=== PATIENT | male | born 1965 | race African-American/Black ===

== ENCOUNTER 2017-01-18 19:43 | Emergency (ER) | payer BC ==
[2017-01-18] MEDS ORDERED: Sodium Chloride 0.9% 1,000 ML IV ONE (19:51)
--- NOTE | 2017-01-18 19:51 | EDM.PDOC ---
ED HPI GENERAL MEDICAL PROBLEM - General Chief Complaint: Chest Pain Stated Complaint: DIZZY/VISION Time Seen by Provider: 01/18/17 19:51 - History of Present Illness INITIAL COMMENTS - FREE TEXT/NARRATIVE: HISTORY AND PHYSICAL: History of present illness: Patient is a 44-year-old black male presents a concern of chest pain shortness of breath dizziness for 2 weeks he denies palpitations diaphoresis associated nausea vomiting diarrhea or other complaints. Review of systems: As per history of present illness and below otherwise all systems reviewed and negative. Past medical history: As per history of present illness and as reviewed below otherwise noncontributory. Surgical history: As per history of present illness and as reviewed below otherwise noncontributory. Social history: No reported history of drug or alcohol abuse. Family history: As per history of present illness and as reviewed below otherwise noncontributory. Physical exam: HEENT: Atraumatic, normocephalic, pupils reactive, negative for conjunctival pallor or scleral icterus, mucous membranes moist, throat clear, neck supple, nontender, trachea midline. Lungs: Clear to auscultation, breath sounds equal bilaterally, chest nontender. Heart: S1S2, regular, negative for clicks, rubs, or JVD. Abdomen: Soft, nondistended, nontender. Negative for masses or hepatosplenomegaly. Negative for costovertebral tenderness. Pelvis: Stable nontender. Genitourinary: Deferred. Rectal: Deferred. Extremities: Atraumatic, negative for cords or calf pain. Neurovascular unremarkable. Neuro: Awake, alert, oriented. Cranial nerves II through XII unremarkable. Cerebellum unremarkable. Motor and sensory unremarkable throughout. Exam nonfocal. Diagnostics: CBC CMP PT/INR troponin chest x-ray EKG Therapeutics: IV O2 monitor Impression: #1 atypical chest pain #2 dyspnea over 3 dizziness Definitive disposition and diagnosis as appropriate pending reevaluation and review of above. - Related Data Allergies Allergy/AdvReac Type Severity Reaction Status Date / Time No Known Allergies Allergy Verified 01/18/17 19:47 Home Meds: Home Meds . [No Known Home Meds] 01/18/17 [History] ED ROS GENERAL - Review of Systems Review Of Systems: ROS reveals no pertinent complaints other than HPI. ED EXAM, GENERAL - Physical Exam Exam: See Below (See dictation) Course - Orders/Labs/Meds Orders: Active Orders 24 hr Category Date Time Status EKG 12 Lead [EKG Documentation Completion] [RC] STAT Care 01/18/17 19:47 Active Departure - Departure Time of Disposition: 19:50 Disposition: Home, Self-Care 01 Condition: Good Clinical Impression: Atypical chest pain, Dyspnea, Dizziness - Discharge Information Referrals: PCP,None [Primary Care Provider] - Additional Instructions: The following information is given to patients seen in the emergency department who are being discharged to home. This information is to outline your options for follow-up care. We provide all patients seen in our emergency department with a follow-up referral. The need for follow-up, as well as the timing and circumstances, are variable depending upon the specifics of your emergency department visit. If you don't have a primary care physician on staff, we will provide you with a referral. We always advise you to contact your personal physician following an emergency department visit to inform them of the circumstance of the visit and for follow-up with them and/or the need for any referrals to a consulting specialist. The emergency department will also refer you to a specialist when appropriate. This referral assures that you have the opportunity for followup care with a specialist. All of these measure are taken in an effort to provide you with optimal care, which includes your followup. Under all circumstances we always encourage you to contact your private physician who remains a resource for coordinating your care. When calling for followup care, please make the office aware that this follow-up is from your recent emergency room visit. If for any reason you are refused follow-up, please contact the [facility] emergency department at and asked to speak to the emergency department charge nurse. [facility] [address] [place] [phone] Follow primary medical doctor and/or clinic as discussed alternate Tylenol as directed push fluids return as needed as discussed - My Orders Last 24 Hours: My Active Orders 01/18/17 19:47 EKG 12 Lead [EKG Documentation Completion] [RC] STAT - Assessment/Plan Last 24 Hours: My Active Orders 01/18/17 19:47 EKG 12 Lead [EKG Documentation Completion] [RC] STAT
[2017-01-18 20:28] LABS: CHLORIDE,CL 97 mmol/L (98-110); SODIUM,NA 132 mmol/L (136-146)
[2017-01-18 21:23] VITALS: BP 118/85
--- NOTE | 2017-01-19 16:00 | CR ---
EXAM DATE: 01/18/17 PATIENT'S AGE: 51 Patient: LYNDSEY LYNN Facility: [place], [place] Site . Site : 1965 Study: XRay Chest [id number]/5/2017 8:32:04 PM Ordering Physician: Jorge Wilson Final Report: INDICATIONS: Chest pain. Shortness of breath. TECHNIQUE: Chest 1 view portable. COMPARISON: None FINDINGS: No pneumothorax, pleural effusion or airspace consolidation. Cardiac and mediastinal contours are within normal limits. Upper abdomen and osseous structures show no acute abnormality. IMPRESSION: No evidence of acute cardiopulmonary disease. Dictated by Sukh Liu MD @ 01/18/2017 8:51:34 PM Dictated by: Sukh Liu MD @ 01/18/2017 20:51:51 (Electronic Signature) Report Signed by Proxy. [facility]
== END 2017-01-18 21:23 | disposition home or self-care (01) ==
LOC: MW.ED 19:43
DX: R07.89 Other chest pain (principal); R42 Dizziness and giddiness; R06.00 Dyspnea, unspecified
CPT/HCPCS: 71010; 80053; 82553; 84484; 85025; 93005; 96360; 99285; J7040; 99284

== ENCOUNTER 2018-01-06 16:12 | Emergency (ER) | payer SELFPAY ==
[2018-01-06] MEDS ORDERED: Albuterol/Ipratropium 3.0-0.5 MG/3 ML Neb Soln NEB ONE (16:38)
--- NOTE | 2018-01-06 16:49 | EDM.PDOC ---
ED HPI GENERAL MEDICAL PROBLEM - General Chief Complaint: Respiratory Problem Stated Complaint: PT HAS CHEST PAINS Time Seen by Provider: 01/06/18 16:38 Source of Information: Reports: Patient History Limitations: Reports: No Limitations - History of Present Illness INITIAL COMMENTS - FREE TEXT/NARRATIVE: HISTORY AND PHYSICAL: History of present illness: Patient is a 52-year-old male here with cough and SOB x 4 days. He states he has pain in his midchest with coughing. He states he had a hard time sleeping last night due to the cough. He denies any fevers, chills, nausea, vomiting, diarrhea, diaphoresis, radiation of pain to left jaw or arm. Review of systems: As per history of present illness and below otherwise all systems reviewed and negative. Past medical history: As per history of present illness and as reviewed below otherwise noncontributory. Surgical history: As per history of present illness and as reviewed below otherwise noncontributory. Social history: No reported history of drug or alcohol abuse. Family history: As per history of present illness and as reviewed below otherwise noncontributory. Physical exam: General: patient is sitting comfortably in no acute distress HEENT: Atraumatic, normocephalic, pupils reactive, negative for conjunctival pallor or scleral icterus, mucous membranes moist, throat clear, neck supple, nontender, trachea midline. Lungs: Wheezing noted throughout all lung lyon, breath sounds diminished, breath sounds equal bilaterally, chest nontender. Heart: S1S2, regular, negative for clicks, rubs, or JVD. Abdomen: Soft, nondistended, nontender. Negative for masses or hepatosplenomegaly. Negative for costovertebral tenderness. Pelvis: Stable nontender. Genitourinary: Deferred. Rectal: Deferred. Extremities: Atraumatic, negative for cords or calf pain. Neurovascular unremarkable. Neuro: Awake, alert, oriented. Cranial nerves II through XII unremarkable. Cerebellum unremarkable. Motor and sensory unremarkable throughout. Exam nonfocal. Notes: Patient reports significant improvement after DuoNob. Oxygen saturation 97%. Diagnostics: Chest x-ray Therapeutics: DuoNeb Impression: Acute bronchitis Plan: 1. Use inhaler as instructed 2. Follow up with primary care provider 3. Return to ED as needed as discussed Definitive disposition and diagnosis as appropriate pending reevaluation and review of above. Middle Chest Pain Score (Numeric/FACES): 6 - Related Data Allergies Allergy/AdvReac Type Severity Reaction Status Date / Time No Known Allergies Allergy Verified 01/18/17 19:47 Home Meds: Home Meds Dulaglutide [Trulicity] 14 units DAILY 01/06/18 [History] Lisinopril 5 mg DAILY 01/06/18 [History] metFORMIN HCl [Metformin HCl] 1,000 mg BID 01/06/18 [History] Past Medical History - Past Health History Medical/Surgical History: Denies Medical/Surgical History - Infectious Disease History Infectious Disease History: Reports: None Social & Family History - Family History Family Medical History: Noncontributory ED ROS GENERAL - Review of Systems Review Of Systems: ROS reveals no pertinent complaints other than HPI. ED EXAM, GENERAL - Physical Exam Exam: See Below (see dictation) Course - Vital Signs Last Recorded V/S: Last Vital Signs Temp 36.9 C 01/06/18 16:29 Pulse 109 H 01/06/18 16:29 Resp 20 01/06/18 16:29 BP 115/69 01/06/18 16:29 Pulse Ox 94 L 01/06/18 16:29 - Orders/Labs/Meds Orders: Active Orders 24 hr Category Date Time Status RT Aerosol Therapy [RC] ASDIRECTED Care 01/06/18 16:39 Active Chest 2V [CR] Stat Exams 01/06/18 16:38 Taken Meds: Medications Discontinued Medications Generic Name Dose Route Start Last Admin Trade Name Freq PRN Reason Stop Dose Admin Albuterol/Ipratropium 3 ml 01/06/18 16:38 01/06/18 16:42 Duoneb 3.0-0.5 Mg/3 Ml NEB 01/06/18 16:39 3 ml ONETIME ONE Administration Departure - Departure Time of Disposition: 17:51 Disposition: Home, Self-Care 01 Condition: Good Clinical Impression: Acute bronchitis - Discharge Information Referrals: PCP,None [Primary Care Provider] - Forms: ED Department Discharge Additional Instructions: The following information is given to patients seen in the emergency department who are being discharged to home. This information is to outline your options for follow-up care. We provide all patients seen in our emergency department with a follow-up referral. The need for follow-up, as well as the timing and circumstances, are variable depending upon the specifics of your emergency department visit. If you don't have a primary care physician on staff, we will provide you with a referral. We always advise you to contact your personal physician following an emergency department visit to inform them of the circumstance of the visit and for follow-up with them and/or the need for any referrals to a consulting specialist. The emergency department will also refer you to a specialist when appropriate. This referral assures that you have the opportunity for follow-up care with a specialist. All of these measure are taken in an effort to provide you with optimal care, which includes your follow-up. Under all circumstances we always encourage you to contact your private physician who remains a resource for coordinating your care. When calling for follow-up care, please make the office aware that this follow-up is from your recent emergency room visit. If for any reason you are refused follow-up, please contact the [facility] Emergency Department at and asked to speak to the emergency department charge nurse. [facility] [address] [place], [place] [id number] [place] [address] 1. Use inhaler as instructed 2. Follow up with primary care provider 3. Return to ED as needed as discussed - My Orders Last 24 Hours: My Active Orders 01/06/18 16:38 Chest 2V [CR] Stat 01/06/18 16:39 RT Aerosol Therapy [RC] ASDIRECTED - Assessment/Plan Last 24 Hours: My Active Orders 01/06/18 16:38 Chest 2V [CR] Stat 01/06/18 16:39 RT Aerosol Therapy [RC] ASDIRECTED
[2018-01-06 18:03] VITALS: BP 115/72
--- NOTE | 2018-01-06 22:21 | CR ---
EXAM DATE: 01/06/18 PATIENT'S AGE: 52 Patient: LYNDSEY LYNN Facility: [place], [place] Site . Site : 1965 Study: XRay Chest [id number]/24/2018 5:24:42 PM Ordering Physician: Doctor Reynoso Final Report: INDICATION: Shortness of breath, chest pain. COMPARISON: PA chest 01/18/2017. FINDINGS: Bony thorax and soft tissue structures are intact. Cardiac and mediastinal silhouettes are normal. The pulmonary vasculature is normal. The lungs are free of infiltrate. There are no pleural effusions. IMPRESSION: No active cardiopulmonary disease. Dictated by Daisha Jaimes MD @ Jan 06 2018 5:49PM (Electronic Signature) Report Signed by Proxy. RL
== END 2018-01-06 18:00 | disposition home or self-care (01) ==
LOC: MW.ED 16:12
DX: J20.9 Acute bronchitis, unspecified (principal); Z79.899 Other long term (current) drug therapy
CPT/HCPCS: 71046; 71046-26; 94640; 99282; 99285-25; J7620-GY

== ENCOUNTER 2019-02-16 19:28 | Emergency (ER) | payer BC ==
[2019-02-16] MEDS ORDERED: Acetaminophen 500 MG Tab PO ONE (19:55)
--- NOTE | 2019-02-16 20:01 | EDM.PDOC ---
ED HPI GENERAL MEDICAL PROBLEM - General Chief Complaint: General Stated Complaint: LIGHT HEADED DIZZINESS Time Seen by Provider: 02/16/19 19:34 - History of Present Illness INITIAL COMMENTS - FREE TEXT/NARRATIVE: HISTORY AND PHYSICAL: History of present illness: The patient is a 53-year-old male with a history of hypertension and diabetes who follows in our clinic and presents with an episode of dizziness/ lightheadedness that started when he was at the gym doing his workout. According to family at bedside he worked a long day at work and does drink energy drinks and went to the gym to work out and he was doing his sequence of exercises with each round of exercises correlating to 50 pushups for total of 300 pushups when during the exercise of doing the pushups he started feeling dizzy and lightheaded with the room was spinning. He did not pass out or black out and did not have a headache initially and sat down and did not have to close his eyes or lay flat. He had no chest pain palpitations abdominal pain nausea vomiting or shortness of breath with this episode. He had no neck or back pain and no focal neurologic changes with this episode. He says he does not have inner ear disturbances and moving his headache didn't make the symptoms worse. The dizziness/lightheadedness has now resolved but after that started improving he started getting a slight headache on the right side of his head which is not excruciating and it was not associated with visual changes or any other new symptoms. He currently says he is not dizzy or lightheaded and he has only a dull headache on the right side of his head but no neck pain. He's had no nausea or vomiting and otherwise earlier today had a normal day without systemic issues. He says his last hemoglobin A1c was in the 6 range and his fasting blood sugar is usually around 120. He said that with this episode he did check his blood sugar and it was okay. He has no abdominal complaints no flank pain and no urinary issues. He did not take any medications prior to coming here. As a result of doing exercise he does not complain of any muscle pain in his arms legs or body. Review of systems: As per history of present illness and below otherwise all systems reviewed and negative. Past medical history: As per history of present illness and as reviewed below otherwise noncontributory. Surgical history: As per history of present illness and as reviewed below otherwise noncontributory. Social history: No reported history of drug or alcohol abuse. Family history: As per history of present illness and as reviewed below otherwise noncontributory. Physical exam: General: Well-developed well-nourished man who is nontoxic and vital signs are noted by me. He moves easily in the ED without distress and has no nystagmus. He can move his head side to side up and down without eliciting any dizziness or lightheadedness. Vital signs were noted by me HEENT: Atraumatic, normocephalic, pupils reactive, negative for conjunctival pallor or scleral icterus, mucous membranes moist, throat clear, neck supple, nontender, trachea midline. There is no cervical adenopathy or nuchal rigidity and TMs are normal bilaterally and there is no mastoid tenderness or erythema. He does have slight prominence of his globes bilaterally but I do not appreciate any thyromegaly Lungs: Clear to auscultation, breath sounds equal bilaterally, chest nontender. Heart: S1S2, regular rate and rhythm no overt murmurs Abdomen: Soft, nondistended, nontender. Negative for masses or hepatosplenomegaly. Negative for costovertebral tenderness. Pelvis: Deferred Genitourinary: Deferred. Rectal: Deferred. Extremities: Atraumatic, negative for cords or calf pain. Neurovascular unremarkable. No pedal edema or leg asymmetry Neuro: Awake, alert, oriented. Cranial nerves II through XII unremarkable. Cerebellum unremarkable. Motor and sensory unremarkable throughout. Exam nonfocal. Diagnostics: EKG orthostatic vitals CBC CMP troponin TSH CPK UA with reflex CT scan of the head Therapeutics: Tylenol All testing results were discussed with the patient and family at bedside. I've advised him about altering his workouts and drinking more hydrating fluids rather than energy drinks. I told him to continue to monitor his symptoms and to follow-up with Dr. Paris in the clinic for further care and evaluation and reasons to return to the ED. Impression: Episode of dizziness/lightheadedness, mild cephalgia Definitive disposition and diagnosis as appropriate pending reevaluation and review of above. headache Pain Score (Numeric/FACES): 2 - Related Data Allergies Allergy/AdvReac Type Severity Reaction Status Date / Time No Known Allergies Allergy Verified 02/16/19 19:36 Home Meds: Home Meds Dulaglutide [Trulicity] 14 units SQ DAILY 01/06/18 [History] Lisinopril 5 mg PO DAILY 01/06/18 [History] metFORMIN HCl [Metformin HCl] 1,000 mg PO BID 01/06/18 [History] Past Medical History - Past Health History Medical/Surgical History: Denies Medical/Surgical History HEENT History: Reports: None Cardiovascular History: Reports: Hypertension Respiratory History: Reports: None Gastrointestinal History: Reports: None Genitourinary History: Reports: None Musculoskeletal History: Reports: None Neurological History: Reports: None Psychiatric History: Reports: None Endocrine/Metabolic History: Reports: Diabetes, Type II Insulin Pump Model and Technical Translator: None Hematologic History: Reports: None Immunologic History: Reports: None Oncologic (Cancer) History: Reports: None Dermatologic History: Reports: None - Infectious Disease History Infectious Disease History: Reports: None Social & Family History - Family History Family Medical History: Noncontributory - Tobacco Use Smoking Status *Q: Never Smoker - Caffeine Use Caffeine Use: Reports: None - Recreational Drug Use Recreational Drug Use: No ED ROS GENERAL - Review of Systems Review Of Systems: ROS reveals no pertinent complaints other than HPI. ED EXAM, GENERAL - Physical Exam Exam: See Below (See dictation) Course - Vital Signs Last Recorded V/S: Last Vital Signs Temp 36.4 C 02/16/19 19:38 Pulse 85 02/16/19 19:38 Resp 18 02/16/19 19:38 BP 142/87 H 02/16/19 19:38 Pulse Ox 99 02/16/19 19:38 Orthostatic Blood Pressure [ 141/94 Standing] Orthostatic Blood Pressure [ 140/87 Sitting] Orthostatic Blood Pressure [ 130/89 Supine] - Orders/Labs/Meds Orders: Active Orders 24 hr Category Date Time Status EKG Documentation Completion [RC] STAT Care 02/16/19 19:54 Active Orthostatic Vital Signs [RC] ASDIRECTED Care 02/16/19 19:54 Active Labs: Laboratory Tests 02/16/19 02/16/19 02/16/19 Range/Units 19:55 20:00 20:00 WBC 5.72 (4.0-11.0) K/uL RBC 5.36 (4.50-5.90) M/uL Hgb 15.2 (13.0-17.0) g/dL Hct 45.1 (38.0-50.0) % MCV 84.1 (80.0-98.0) fL MCH 28.4 (27.0-32.0) pg MCHC 33.7 (31.0-37.0) g/dL RDW Std Deviation 43.3 (28.0-62.0) fl RDW Coeff of Chao 14 (11.0-15.0) % Plt Count 209 (150-400) K/uL MPV 10.10 (7.40-12.00) fL Neut % (Auto) 47.8 L (48.0-80.0) % Lymph % (Auto) 38.8 (16.0-40.0) % [place] % (Auto) 9.1 (0.0-15.0) % Eos % (Auto) 3.8 (0.0-7.0) % Baso % (Auto) 0.5 (0.0-1.5) % Neut # (Auto) 2.7 (1.4-5.7) K/uL Lymph # (Auto) 2.2 (0.6-2.4) K/uL [place] # (Auto) 0.5 (0.0-0.8) K/uL Eos # (Auto) 0.2 (0.0-0.7) K/uL Baso # (Auto) 0.0 (0.0-0.1) K/uL Nucleated RBC % 0.0 /100WBC Nucleated RBCs # 0 K/uL Sodium 141 (136-148) mmol/L Potassium 4.4 (3.5-5.1) mmol/L Chloride 103 (98-107) mmol/L Carbon Dioxide 29.4 (21.0-32.0) mmol/L BUN 17 (7.0-18.0) mg/dL Creatinine 1.1 (0.8-1.3) mg/dL Est Cr Clr Drug Dosing 70.89 mL/min Estimated GFR (MDRD) > 60.0 ml/min Glucose 109 H (74-106) mg/dL Hemoglobin A1c (4.5-6.2) % Calcium 8.7 (8.5-10.1) mg/dL Total Bilirubin 0.3 (0.2-1.0) mg/dL AST 20 (15-37) IU/L ALT 28 (14-63) IU/L Alkaline Phosphatase 55 (46-116) U/L Creatine Kinase 230 (26-308) U/L Troponin I < 0.050 (0.000-0.056) ng/mL Total Protein 7.8 (6.4-8.2) g/dL Albumin 3.9 (3.4-5.0) g/dL Globulin 3.9 (2.6-4.0) g/dL Albumin/Globulin Ratio 1.0 (0.9-1.6) TSH 3rd Generation 1.55 (0.36-3.74) uIU/mL Urine Color YELLOW Urine Appearance CLEAR Urine pH 5.5 (5.0-8.0) Ur Specific [place] 1.015 (1.001-1.035) Urine Protein NEGATIVE (NEGATIVE) mg/dL Urine Glucose (UA) >=1000 (NEGATIVE) mg/dL Urine Ketones NEGATIVE (NEGATIVE) mg/dL Urine Occult Blood NEGATIVE (NEGATIVE) Urine Nitrite NEGATIVE (NEGATIVE) Urine Bilirubin NEGATIVE (NEGATIVE) Urine Urobilinogen 0.2 (<2.0) EU/dL Ur Leukocyte Esterase NEGATIVE (NEGATIVE) 02/16/19 Range/Units 20:00 WBC (4.0-11.0) K/uL RBC (4.50-5.90) M/uL Hgb (13.0-17.0) g/dL Hct (38.0-50.0) % MCV (80.0-98.0) fL MCH (27.0-32.0) pg MCHC (31.0-37.0) g/dL RDW Std Deviation (28.0-62.0) fl RDW Coeff of Chao (11.0-15.0) % Plt Count (150-400) K/uL MPV (7.40-12.00) fL Neut % (Auto) (48.0-80.0) % Lymph % (Auto) (16.0-40.0) % [place] % (Auto) (0.0-15.0) % Eos % (Auto) (0.0-7.0) % Baso % (Auto) (0.0-1.5) % Neut # (Auto) (1.4-5.7) K/uL Lymph # (Auto) (0.6-2.4) K/uL [place] # (Auto) (0.0-0.8) K/uL Eos # (Auto) (0.0-0.7) K/uL Baso # (Auto) (0.0-0.1) K/uL Nucleated RBC % /100WBC Nucleated RBCs # K/uL Sodium (136-148) mmol/L Potassium (3.5-5.1) mmol/L Chloride (98-107) mmol/L Carbon Dioxide (21.0-32.0) mmol/L BUN (7.0-18.0) mg/dL Creatinine (0.8-1.3) mg/dL Est Cr Clr Drug Dosing mL/min Estimated GFR (MDRD) ml/min Glucose (74-106) mg/dL Hemoglobin A1c 6.1 (4.5-6.2) % Calcium (8.5-10.1) mg/dL Total Bilirubin (0.2-1.0) mg/dL AST (15-37) IU/L ALT (14-63) IU/L Alkaline Phosphatase (46-116) U/L Creatine Kinase (26-308) U/L Troponin I (0.000-0.056) ng/mL Total Protein (6.4-8.2) g/dL Albumin (3.4-5.0) g/dL Globulin (2.6-4.0) g/dL Albumin/Globulin Ratio (0.9-1.6) TSH 3rd Generation (0.36-3.74) uIU/mL Urine Color Urine Appearance Urine pH (5.0-8.0) Ur Specific [place] (1.001-1.035) Urine Protein (NEGATIVE) mg/dL Urine Glucose (UA) (NEGATIVE) mg/dL Urine Ketones (NEGATIVE) mg/dL Urine Occult Blood (NEGATIVE) Urine Nitrite (NEGATIVE) Urine Bilirubin (NEGATIVE) Urine Urobilinogen (<2.0) EU/dL Ur Leukocyte Esterase (NEGATIVE) Meds: Medications Discontinued Medications Generic Name Dose Route Start Last Admin Trade Name Freq PRN Reason Stop Dose Admin Acetaminophen 1,000 mg 02/16/19 19:55 02/16/19 20:35 Tylenol Extra Strength PO 02/16/19 19:56 1,000 mg ONETIME ONE Administration Departure - Departure Time of Disposition: 20:53 Disposition: Home, Self-Care 01 Condition: Good Clinical Impression: Lightheadedness, Dizziness - Discharge Information Referrals: Matt Paris MD [Primary Care Provider] - Forms: ED Department Discharge Additional Instructions: The following information is given to patients seen in the emergency department who are being discharged to home. This information is to outline your options for follow-up care. We provide all patients seen in our emergency department with a follow-up referral. The need for follow-up, as well as the timing and circumstances, are variable depending upon the specifics of your emergency department visit. If you don't have a primary care physician on staff, we will provide you with a referral. We always advise you to contact your personal physician following an emergency department visit to inform them of the circumstance of the visit and for follow-up with them and/or the need for any referrals to a consulting specialist. The emergency department will also refer you to a specialist when appropriate. This referral assures that you have the opportunity for followup care with a specialist. All of these measure are taken in an effort to provide you with optimal care, which includes your followup. Under all circumstances we always encourage you to contact your private physician who remains a resource for coordinating your care. When calling for followup care, please make the office aware that this follow-up is from your recent emergency room visit. If for any reason you are refused follow-up, please contact the [facility] emergency department at and ask to speak to the emergency department charge nurse. [facility] Primary care- Internal Medicine and Family [address] [address] Continue all home medications and continue to monitor your blood sugars. Push more hydrating fluids and reduce caffeinated products such as energy drinks. Please modify her workouts as we discussed and rest for the next 24 hours. Please connect with your provider in the clinic for further care and evaluation and return to ER as needed and as discussed - My Orders Last 24 Hours: My Active Orders 02/16/19 19:54 EKG Documentation Completion [RC] STAT Orthostatic Vital Signs [RC] ASDIRECTED - Assessment/Plan Last 24 Hours: My Active Orders 02/16/19 19:54 EKG Documentation Completion [RC] STAT Orthostatic Vital Signs [RC] ASDIRECTED
--- NOTE | 2019-02-16 20:35 | CT ---
INDICATION: Dizzy and lightheaded TECHNIQUE: CT head without contrast. COMPARISON: None. FINDINGS: CSF spaces: Within normal limits for age. Brain parenchyma and extra-axial spaces: The castillo-white differentiation is normal. No sign of mass, hemorrhage, or midline shift. No extra-axial fluid collection. Skull base and calvarium: The visualized paranasal sinuses and mastoid air cells demonstrate no acute or significant findings. The visualized orbits are grossly unremarkable. No skull fractures. IMPRESSION: Unremarkable noncontrast head CT. Please note that all CT scans at this facility use dose modulation, iterative reconstruction, and/or weight-based dosing when appropriate to reduce radiation dose to as low as reasonably achievable. Dictated by Momo Winn MD @ Feb 16 2019 8:31PM Signed by Dr. Momo Winn @ Feb 16 2019 8:34PM
[2019-02-16 20:45] LABS: BLOOD UREA NITROGEN,BUN 17 mg/dL (7.0-18.0); CARBON DIOXIDE,CO2 29.4 mmol/L (21.0-32.0); CHLORIDE,CL 103 mmol/L (98-107); GLUCOSE RANDOM 109 mg/dL (74-106); POTASSIUM,K 4.4 mmol/L (3.5-5.1); SODIUM,NA 141 mmol/L (136-148)
[2019-02-16 20:51] LABS: HEMOGLOBIN A1C 6.1 % (4.5-6.2)
[2019-02-16 21:11] VITALS: BP 129/83; PULSE 78
== END 2019-02-16 21:04 | disposition home or self-care (01) ==
LOC: MW.ED 19:28
DX: R42 Dizziness and giddiness (principal); R51 Headache; I10 Essential (primary) hypertension; Z79.84 Long term (current) use of oral hypoglycemic drugs; Z79.899 Other long term (current) drug therapy
CPT/HCPCS: 36415; 70450; 80053; 81003; 82550; 83036; 84443; 84484; 85025; 93005; 99284; A9270

== ENCOUNTER 2019-11-25 08:49 | Emergency (ER) | payer BC ==
[2019-11-25] MEDS ORDERED: Albuterol/Ipratropium 3.0-0.5 MG/3 ML Neb Soln NEB ONE (09:26)
--- NOTE | 2019-11-25 09:41 | EDM.PDOC ---
ED HPI GENERAL MEDICAL PROBLEM - General Chief Complaint: Respiratory Problem Stated Complaint: SOB/COUGHING Time Seen by Provider: 11/25/19 09:36 - History of Present Illness INITIAL COMMENTS - FREE TEXT/NARRATIVE: History of present illness: Patient presents with concerns over difficulty breathing which he has been having at night this occurs after his started smoking around him again he said in the past she would smoke around him and he would start having trouble with his breathing and this is recurred again as she has started smoking once more he denies any fever no cough no chest pain he says the cough can be painful but there is no chest pain otherwise when he is not coughing he is not having any fevers he is not had sore throat he has not had leg pain or leg swelling. Review of systems: As per history of present illness and below otherwise all systems reviewed and negative. Past medical history: As per history of present illness and as reviewed below otherwise noncontributory. Surgical history: As per history of present illness and as reviewed below otherwise noncontributory. Social history: No reported history of drug or alcohol abuse. Family history: As per history of present illness and as reviewed below otherwise noncontributory. Physical exam: HEENT: Atraumatic, normocephalic, pupils reactive, negative for conjunctival pallor or scleral icterus, mucous membranes moist, throat clear, neck supple, nontender, trachea midline. Lungs: Scattered wheezing present no retractions no stridor he has no respiratory distress., breath sounds equal bilaterally, chest nontender. Heart: S1S2, regular, negative for clicks, rubs, or JVD. Abdomen: Soft, nondistended, nontender. Negative for masses or hepatosplenomegaly. Negative for costovertebral tenderness. Pelvis: Stable nontender. Genitourinary: Deferred. Rectal: Deferred. Extremities: Atraumatic, negative for cords or calf pain. Neurovascular unremarkable. Neuro: Awake, alert, oriented. Cranial nerves II through XII unremarkable. Ce rebellum unremarkable. Motor and sensory unremarkable throughout. Exam nonfocal. Diagnostics: [] Therapeutics: [] Impression: [] Plan: DuoNeb EKG reassess vital signs are stable [] Definitive disposition and diagnosis as appropriate pending reevaluation and review of above. - Related Data Allergies Allergy/AdvReac Type Severity Reaction Status Date / Time No Known Allergies Allergy Verified 02/16/19 19:36 Home Meds: Home Meds Lisinopril 5 mg PO DAILY 01/06/18 [History] metFORMIN HCl [Metformin HCl] 1,000 mg PO BID 01/06/18 [History] Past Medical History - Past Health History Medical/Surgical History: Denies Medical/Surgical History HEENT History: Reports: None Cardiovascular History: Reports: Hypertension Respiratory History: Reports: None Gastrointestinal History: Reports: None Genitourinary History: Reports: None Musculoskeletal History: Reports: None Neurological History: Reports: None Psychiatric History: Reports: None Endocrine/Metabolic History: Reports: Diabetes, Type II Insulin Pump Model and Plastic Tool Maker: None Hematologic History: Reports: None Immunologic History: Reports: None Oncologic (Cancer) History: Reports: None Dermatologic History: Reports: None - Infectious Disease History Infectious Disease History: Reports: None Social & Family History - Family History Family Medical History: Noncontributory - Tobacco Use Smoking Status *Q: Never Smoker Second Hand Smoke Exposure: Yes - Caffeine Use Caffeine Use: Reports: None - Recreational Drug Use Recreational Drug Use: No ED ROS GENERAL - Review of Systems Review Of Systems: See Below ED EXAM, GENERAL - Physical Exam Exam: See Below EKG INTERPRETATION EKG Interpretation Comments: EKG is a normal sinus rhythm 84 bpm normal axis normal intervals no ischemic changes read and interpreted by me Course - Vital Signs Text/Narrative:: Patient feels much better after breathing treatment he will be discharged home with albuterol Decadron in the ED prior to discharge. Last Recorded V/S: Last Vital Signs Temp 36.5 C 11/25/19 09:10 Pulse 71 11/25/19 09:10 Resp 16 11/25/19 09:10 BP 128/92 H 11/25/19 09:10 Pulse Ox 98 11/25/19 09:10 - Orders/Labs/Meds Orders: Active Orders 24 hr Category Date Time Status EKG Documentation Completion [RC] STAT Care 11/25/19 09:25 Active RT Aerosol Therapy [RC] ASDIRECTED Care 11/25/19 09:26 Active Meds: Medications Discontinued Medications Generic Name Dose Route Start Last Admin Trade Name Freq PRN Reason Stop Dose Admin Albuterol/Ipratropium 3 ml 11/25/19 09:26 11/25/19 09:32 Duoneb 3.0-0.5 Mg/3 Ml NEB 11/25/19 09:27 3 ml ONETIME ONE Administration Departure - Departure Time of Disposition: 10:27 Disposition: Home, Self-Care 01 Condition: Good Clinical Impression: Asthma - Discharge Information *PRESCRIPTION DRUG MONITORING PROGRAM REVIEWED*: Not Applicable *COPY OF PRESCRIPTION DRUG MONITORING REPORT IN PATIENT HARMAN: Not Applicable Instructions: Asthma, Adult, Shortness of Breath, Adult, [id number] Referrals: Matt Paris MD [Primary Care Provider] - Forms: ED Department Discharge Additional Instructions: The following information is given to patients seen in the emergency department who are being discharged to home. This information is to outline your options for follow-up care. We provide all patients seen in our emergency department with a follow-up referral. The need for follow-up, as well as the timing and circumstances, are variable depending upon the specifics of your emergency department visit. If you don't have a primary care physician on staff, we will provide you with a referral. We always advise you to contact your personal physician following an emergency department visit to inform them of the circumstance of the visit and for follow-up with them and/or the need for any referrals to a consulting specialist. The emergency department will also refer you to a specialist when appropriate. This referral assures that you have the opportunity for follow-up care with a specialist. All of these measure are taken in an effort to provide you with optimal care, which includes your follow-up. Under all circumstances we always encourage you to contact your private physician who remains a resource for coordinating your care. When calling for follow-up care, please make the office aware that this follow-up is from your recent emergency room visit. If for any reason you are refused follow-up, please contact the [facility] Emergency Department at and asked to speak to the emergency department charge nurse. Sepsis Event Note (ED) - Evaluation Sepsis Screening Result: No Definite Risk - Focused Exam Vital Signs: Vital Signs Temp Pulse Resp BP Pulse Ox 11/25/19 09:10 36.5 C 71 16 128/92 H 98 - My Orders Last 24 Hours: My Active Orders 11/25/19 09:25 EKG Documentation Completion [RC] STAT 11/25/19 09:26 RT Aerosol Therapy [RC] ASDIRECTED - Assessment/Plan Last 24 Hours: My Active Orders 11/25/19 09:25 EKG Documentation Completion [RC] STAT 11/25/19 09:26 RT Aerosol Therapy [RC] ASDIRECTED
[2019-11-25] MEDS ORDERED: Dexamethasone 4 MG Tab PO ONE (10:27)
[2019-11-25 10:40] VITALS: BP 136/84; PULSE 89
== END 2019-11-25 10:51 | disposition home or self-care (01) ==
LOC: MW.ED 08:49
DX: J45.909 Unspecified asthma, uncomplicated (principal); I10 Essential (primary) hypertension; E11.9 Type 2 diabetes mellitus without complications; Z79.84 Long term (current) use of oral hypoglycemic drugs; Z79.899 Other long term (current) drug therapy; Z77.22 Contact with and (suspected) exposure to environmental tobacco smoke (acute) (chronic)
CPT/HCPCS: 93005; 94640; 99284; J8540; 99283; J7620-GY

== ENCOUNTER 2019-12-24 06:25 | Emergency (ER) | payer BC ==
[2019-12-24] MEDS ORDERED: Sodium Chloride 0.9% 500 ML IV ONE (06:42)
[2019-12-24] MEDS ORDERED: Acetaminophen 500 MG Tab PO ONE (06:43)
[2019-12-24] MEDS ORDERED: Meclizine 25 MG Tab PO ONE (06:43)
[2019-12-24] MEDS ORDERED: Metoclopramide 10 MG/2 ML SDV IVPUSH ONE (06:43)
[2019-12-24 06:47] VITALS: BP 153/93; PULSE 89
--- NOTE | 2019-12-24 06:49 | EDM.PDOC ---
<Walt Whitman - Last Filed: 12/24/19 11:22> ED HPI GENERAL MEDICAL PROBLEM - General Chief Complaint: General Stated Complaint: DIZZINESS, UNABLE TO KEEP FOOD DOWN Time Seen by Provider: 12/24/19 06:44 - Related Data Allergies Allergy/AdvReac Type Severity Reaction Status Date / Time No Known Allergies Allergy Verified 12/24/19 06:37 Home Meds: Home Meds Lisinopril 5 mg PO DAILY 01/06/18 [History] metFORMIN HCl [Metformin HCl] 1,000 mg PO BID 01/06/18 [History] diazePAM [Valium] 5 - 10 mg PO Q6H PRN #10 tab 12/24/19 [Rx] hydroCHLOROthiazide [Hydrochlorothiazide] 12.5 mg PO DAILY 12/24/19 [History] predniSONE [Prednisone] 5 mg PO ASDIRECTED #81 tablet 12/24/19 [Rx] Course - Vital Signs Text/Narrative:: I assumed care of this patient [address] Heart. In brief, this is a 54-year-old male with a past medical history of diabetes mellitus and hypertension presenting with dizziness, intermittent vertigo, nausea, vomiting, and headache. Work-up in progress includes CBC, CMP, troponin, TSH, magnesium, noncontrast head CT and noncontrast maxillofacial sinus CT. Noncontrast head CT shows microvascular disease but no acute findings, the radiologist did recommend MRI. Vital signs reviewed. Nursing notes reviewed. Constitutional: Awake, alert, non-distressed. Head: Normocephalic, atraumatic. Eyes: EOMI, conjunctiva normal, no discharge, no scleral icterus. Pupils 3 mm bilaterally. Right beating horizontal nystagmus present. Ears, Nose, Throat: External ears and nose normal, moist oral mucosa. Cardiovascular: 2+ radial pulse, capillary refill less than 2 seconds. No carotid bruits. Pulmonary: normal work of breathing, no accessory muscle use. Abdomen/GI: Soft, nontender, nondistended, no guarding or rigidity, no masses. Musculoskeletal: No deformities. Integumentary: Appropriate color for ethnicity, warm, dry, no pallor or jaundice, no rash. Neurologic: Awake, alert, and oriented x3. Cranial nerves II through XII intact - right-beating horizontal nystagmus present. No facial droop or dysarthria. No temporal artery tenderness. Supple neck with normal range of motion. No pronator drift. Normal [id number]-svhcov and vzqv-ag-qmxa. No dysdiadochokinesia. 5/5 strength in all extremities. Sensation intact to light touch x4. Negative Romberg. Ataxic gait observed. Able to sit, stand, and ambulate without assistance. Psychiatric: Appropriate mood and affect, normal thought process. When I examined the patient, he has constant vertigo, with persistent right beating horizontal nystagmus even at rest. There is no upward or torsional component. HINTS exam is negative but vertiginous symptoms are persistent, which does not fit with BPPV. Vertigo present for at least 2 hours now and is not triggered by head movement. There is some concern for central etiology such as CVA, Mnire's disease, labyrinthitis, acoustic neuroma, etc. We are going to pursue MR imaging of the head and neck with angiography. MRI imaging of the head and neck with angiography shows a very small left-sided vertebral artery, no evidence of thrombus, dissection, occlusion. No evidence of an acute stroke. Patient remains symptomatic so I consulted our neurologist Dr. Stone who evaluated the patient in the emergency department. Her examination was consistent with vestibular neuronitis and she is comfortable with the patient discharging home with a 10-day prednisone steroid taper and diazepam PRN. The patient will follow-up with Dr. Stone in her clinic in 1 to 2 weeks for reevaluation. Strict emergency department return precautions were provided and all questions were answered prior to discharge. Departure - Departure Time of Disposition: 10:47 Disposition: Home, Self-Care 01 Condition: Good Clinical Impression: Vestibular neuronitis Qualifiers: Laterality: right Qualified Code(s): H81.21 - Vestibular neuronitis, right ear - Discharge Information *PRESCRIPTION DRUG MONITORING PROGRAM REVIEWED*: Yes *COPY OF PRESCRIPTION DRUG MONITORING REPORT IN PATIENT HARMAN: Not Applicable Prescriptions: predniSONE [Prednisone] 5 mg PO ASDIRECTED #81 tablet diazePAM [Valium] 5 - 10 mg PO Q6H PRN #10 tab PRN Reason: Dizziness Instructions: Labyrinthitis, [id number]-[id number] Referrals: Effie Stone MD [Physician] - 1 Week (For follow-up of dizziness.) Forms: ED Department Discharge Additional Instructions: You were seen in the emergency department for dizziness. You were diagnosed with vestibular neuronitis, a condition where the nurse around the ear that affect your balance are inflamed and not working normally. We prescribed some steroids and diazepam. Take these as directed. Follow-up with a neurologist Dr. Stone in 1 to 2 weeks for reevaluation. Please return the emergency department immediately if your symptoms worsen or if you feel worse. Thank you for choosing the [facility] emergency department in [place] for your medical needs today. It was a pleasure caring for you. The following information is given to patients seen in the emergency department who are being discharged. This information is to outline your options for follow-up care. We provide all patients seen in our emergency department with a follow-up referral. The need for follow-up, as well as the timing and circumstances, are variable depending upon the specifics of your emergency department visit. If you don't have a primary care physician on staff, we will provide you with a referral. We always advise you to contact your personal physician following an emergency department visit to inform them of the circumstance of the visit and for follow-up with them and/or the need for any referrals to a consulting specialist. The emergency department will also refer you to a specialist when appropriate. This referral assures that you have the opportunity for follow-up care with a specialist. All of these measure are taken in an effort to provide you with optimal care, which includes your follow-up. Under all circumstances we always encourage you to contact your private physician who remains a resource for coordinating your care. When calling for follow-up care, please make the office aware that this follow-up is from your recent emergency room visit. If for any reason you are refused follow-up, please contact the [facility] Emergency Department at and asked to speak to the emergency department charge nurse. If you do not have a primary care physician that is caring for you, you can contact these clinics below to set up an appointment to establish care: [facility] - Primary Care [address] [place] [id number] [facility] [address] [place] [id number] <Finn Heart - Last Filed: 12/29/19 07:16> ED HPI GENERAL MEDICAL PROBLEM - General Source of Information: Reports: Patient - History of Present Illness INITIAL COMMENTS - FREE TEXT/NARRATIVE: 54M PHx HTN, vertigo presents for 2 days of generalized CHANG, vertigo/dizziness, unsteady gait, and nausea. Patient first noted symptoms 2 days ago. Had 2x emesis yesterday. Has had generalized CHANG which is constant and is worst CHANG he's had but not of sudden onset. Initially was with improvement in symptoms last night but around 5:30AM noted symptoms getting worse again. Notes difficulty sleeping and tried OTC unisom without relief. Notes sinus congestion and frontal CHANG. Denies CP, SOB, syncope, cough, fevers, abdominal pain. Onset: Today head Pain Score (Numeric/FACES): 7 Past Medical History - Past Health History Medical/Surgical History: Denies Medical/Surgical History HEENT History: Reports: None Cardiovascular History: Reports: Hypertension Respiratory History: Reports: None Gastrointestinal History: Reports: None Genitourinary History: Reports: None Musculoskeletal History: Reports: None Neurological History: Reports: None Psychiatric History: Reports: None Endocrine/Metabolic History: Reports: Diabetes, Type II Insulin Pump Model and [employer]: None Hematologic History: Reports: None Immunologic History: Reports: None Oncologic (Cancer) History: Reports: None Dermatologic History: Reports: None - Infectious Disease History Infectious Disease History: Reports: None Social & Family History - Family History Family Medical History: Noncontributory - Caffeine Use Caffeine Use: Reports: None ED ROS GENERAL - Review of Systems Review Of Systems: Comprehensive ROS is negative, except as noted in HPI. ED EXAM, GENERAL - Physical Exam Exam: See Below Exam Limited By: No Limitations General Appearance: Alert, WD/WN, No Apparent Distress Eye Exam: Bilateral Eye: PERRL Head: Atraumatic, Normocephalic Respiratory/Chest: No Respiratory Distress, Lungs Clear, Normal Breath Sounds, No Accessory Muscle Use Cardiovascular: Normal Peripheral Pulses, Regular Rate, Rhythm, No Edema Neurological: Alert, Oriented, CN II-XII Intact, Normal Reflexes, No Motor/Sensory Deficits, Other (negative romberg) Psychiatric: Normal Affect, Normal Mood Skin Exam: Warm, Dry Course - Vital Signs Last Recorded V/S: Last Vital Signs Temp 97.6 F 12/24/19 06:38 Pulse 89 12/24/19 06:38 Resp 18 12/24/19 06:38 BP 153/93 H 12/24/19 06:38 Pulse Ox 98 12/24/19 06:38 - Orders/Labs/Meds Labs: Laboratory Tests 12/24/19 12/24/19 12/24/19 Range/Units 06:39 06:39 09:30 WBC 6.29 (4.0-11.0) K/uL RBC 5.47 (4.50-5.90) M/uL Hgb 15.4 (13.0-17.0) g/dL Hct 44.3 (38.0-50.0) % MCV 81.0 (80.0-98.0) fL MCH 28.2 (27.0-32.0) pg MCHC 34.8 (31.0-37.0) g/dL RDW Std Deviation 38.2 (28.0-62.0) fl RDW Coeff of Chao 13 (11.0-15.0) % Plt Count 203 (150-400) K/uL MPV 10.90 (7.40-12.00) fL Neut % (Auto) 58.4 (48.0-80.0) % Lymph % (Auto) 32.8 (16.0-40.0) % [place] % (Auto) 6.5 (0.0-15.0) % Eos % (Auto) 2.1 (0.0-7.0) % Baso % (Auto) 0.2 (0.0-1.5) % Neut # (Auto) 3.7 (1.4-5.7) K/uL Lymph # (Auto) 2.1 (0.6-2.4) K/uL [place] # (Auto) 0.4 (0.0-0.8) K/uL Eos # (Auto) 0.1 (0.0-0.7) K/uL Baso # (Auto) 0.0 (0.0-0.1) K/uL Sodium 136 (136-148) mmol/L Potassium 3.3 L (3.5-5.1) mmol/L Chloride 100 (98-107) mmol/L Carbon Dioxide 29.0 (21.0-32.0) mmol/L BUN 10 (7.0-18.0) mg/dL Creatinine 1.0 (0.8-1.3) mg/dL Est Cr Clr Drug Dosing 77.09 mL/min Estimated GFR (MDRD) > 60.0 ml/min Glucose 207 H (74-106) mg/dL Calcium 8.3 L (8.5-10.1) mg/dL Magnesium 1.6 L (1.8-2.4) mg/dL Total Bilirubin 0.5 (0.2-1.0) mg/dL AST 16 (15-37) IU/L ALT 27 (14-63) IU/L Alkaline Phosphatase 61 (46-116) U/L Troponin I < 0.050 (0.000-0.056) ng/mL Total Protein 7.8 (6.4-8.2) g/dL Albumin 4.1 (3.4-5.0) g/dL Globulin 3.7 (2.6-4.0) g/dL Albumin/Globulin Ratio 1.1 (0.9-1.6) TSH 3rd Generation 0.64 (0.36-3.74) uIU/mL COVID-19 ([place]) NEGATIVE (NEGATIVE) Meds: Medications Discontinued Medications Generic Name Dose Route Start Last Admin Trade Name Sammi PRN Reason Stop Dose Admin Acetaminophen 1,000 mg 12/24/19 06:43 12/24/19 06:48 Tylenol Extra Strength PO 12/24/19 06:44 1,000 mg ONETIME ONE Administration Aspirin 325 mg 12/24/19 07:55 12/24/19 09:35 Aspirin PO 12/24/19 07:56 325 mg ONETIME ONE Administration Gadobenate Dimeglumine 20 ml 12/24/19 08:15 12/24/19 09:19 Multihance IVPUSH 12/24/19 08:16 15 ml ONETIME STA Administration Sodium Chloride 500 mls @ 999 mls/hr 12/24/19 06:42 12/24/19 06:48 Normal Saline IV 08/10/20 07:12 999 mls/hr .BOLUS ONE Administration Meclizine HCl 25 mg 12/24/19 06:43 12/24/19 06:49 Antivert PO 12/24/19 06:44 25 mg ONETIME ONE Administration Metoclopramide HCl 5 mg 12/24/19 06:43 12/24/19 06:49 Reglan IVPUSH 12/24/19 06:44 5 mg ONETIME ONE Administration - Re-Assessments/Exams Free Text/Narrative Re-Assessment/Exam: 12/24/19 06:48 Patient presents with CHANG, dizziness, feeling unsteady, vertiginous symptoms. Will tx symptomatically. EKG non-ischemic. Will get labs. Will get head CT and max-face CT. Signed out to day-team physician to f/u results and disposition. Sepsis Event Note (ED) - Evaluation Sepsis Screening Result: No Definite Risk
[2019-12-24 07:13] LABS: BLOOD UREA NITROGEN,BUN 10 mg/dL (7.0-18.0); CHLORIDE,CL 100 mmol/L (98-107); GLUCOSE RANDOM 207 mg/dL (74-106); POTASSIUM,K 3.3 mmol/L (3.5-5.1); SODIUM,NA 136 mmol/L (136-148)
--- NOTE | 2019-12-24 07:29 | CT ---
INDICATION: Headache and dizziness. TECHNIQUE: Volumetric helical scanning of the paranasal sinuses was performed without contrast material. Sagittal and coronal reconstructions were also obtained. COMPARISON: Today`s head CT. FINDINGS: The paranasal sinuses and nasal fossa are clear. The osteomeatal complexes and sphenoethmoidal recesses are clear. Mild to moderate leftward deviation of the nasal septum is noted. The temporal bones are grossly negative. IMPRESSION: 1. Clear paranasal sinuses. 2. Mild to moderate leftward nasal septal deviation. Please note that all CT scans at this facility use dose modulation, iterative reconstruction, and/or weight-based dosing when appropriate to reduce radiation dose to as low as reasonably achievable. Dictated by Khoa Donald MD @ Dec 24 2019 7:22AM Signed by Dr. Khoa Donald @ Dec 24 2019 7:26AM
--- NOTE | 2019-12-24 07:43 | CT ---
INDICATION: Headache, dizziness and unsteadiness on feet. TECHNIQUE: Scanning of the head was performed without IV contrast material. Coronal and sagittal reconstructions were obtained. COMPARISON: Head CT of 02/16/2018. FINDINGS: No intracranial hemorrhage is demonstrated. No positive mass effect is evident. Differentiation between the castillo matter and white matter is preserved. There is mild, nonspecific decreased attenuation in the subcortical cerebral white matter which may be increased since the prior study. The ventricles and other subarachnoid spaces are within normal limits for the patient`s age. No calvarial abnormality is evident. The visualized paranasal and mastoid sinuses are clear. IMPRESSION: 1. No acute abnormality demonstrated. 2. Mild, nonspecific cerebral white matter disease which may be increased from the previous exam. The differential diagnosis includes chronic microvascular ischemic disease, demyelination and vasculitis. Consider further evaluation with MRI. Please note that all CT scans at this facility use dose modulation, iterative reconstruction, and/or weight-based dosing when appropriate to reduce radiation dose to as low as reasonably achievable. Dictated by Khoa Donald MD @ Dec 24 2019 7:26AM Signed by Dr. Khoa Donald @ Dec 24 2019 7:41AM
[2019-12-24] MEDS ORDERED: Aspirin 325 MG Tab PO ONE (07:55)
[2019-12-24] MEDS ORDERED: Gadobenate Dimeglumine 529 MG/ML 20 ML SDV IVPUSH STA (08:15)
--- NOTE | 2019-12-24 09:50 | MR ---
MRI brain Technique: T1 sagittal and coronal; T1, T2, FLAIR and diffusion axial images were obtained. Comparison: Prior head CT study of 12/24/19. Findings: Ventricles along with basal cisterns and sulci over the convexities are within normal limits for the patient's age. No abnormal signal is seen within the brain parenchyma. Normal signal void is seen within the major cerebral arteries within the skull base. Nothing acute seen within the visualized paranasal sinuses or mastoid sinuses. No acute diffusion abnormalities are appreciated. Impression: 1. No abnormality is identified on MRI study of the brain. Diagnostic code #1 This report was dictated in MDT
--- NOTE | 2019-12-24 09:50 | MR ---
MR angiogram of neck (without and with intravenous contrast) Technique: Phase contrast MR angiogram study was obtained centered to the carotid bifurcation. Postcontrast axial images were obtained through the neck with reconstructed MIP images obtained in multiple projections. Findings: Very small left sided vertebral artery is noted. Dominant right vertebral artery is seen. Good flow throughout the left vertebral artery is not seen most likely relating to its small size. Right vertebral artery is patent throughout its length. Common carotid arteries are widely patent. Both internal carotid arteries are widely patent. Proximal external carotid arteries are patent. Impression: 1. Very diminutive size of the left vertebral artery with dominant right vertebral artery. Some areas of the left vertebral artery are poorly seen most likely relating to its diminutive size. 2. Other portions of the MR angiogram of the neck appear unremarkable. Diagnostic code #3 This report was dictated in MDT
--- NOTE | 2019-12-24 09:50 | MR ---
MR angiogram of brain Technique: [id number] MR angiogram study was obtained centered to the [place]. Multiple MIP images were obtained in multiple projections. Findings: Basilar artery is patent. Small left sided vertebral artery is noted. Dominant right vertebral artery is present. Posterior cerebral arteries are patent on both sides. Distal internal carotid arteries are patent. Middle and anterior cerebral arteries are patent. Narrowing is noted within the proximal right anterior cerebral artery. This is seen on both MIP and source images. Narrowing as seen on the source images is approximately 50%. No other stenosis is seen. No occlusion is seen. No discrete aneurysm is appreciated. Impression: 1. Dominant right vertebral artery. 2. Approximately 50% narrowing of the proximal right anterior cerebral artery. 3. No additional abnormality is appreciated on MR angiogram of the brain centered to the [place]. Diagnostic code #3 This report was dictated in MDT
--- NOTE | 2019-12-24 12:09 | EDM.PDOC ---
ED HPI GENERAL MEDICAL PROBLEM - General Chief Complaint: General Stated Complaint: DIZZINESS, UNABLE TO KEEP FOOD DOWN Time Seen by Provider: 12/24/19 06:44 Source of Information: Reports: Patient - History of Present Illness INITIAL COMMENTS - FREE TEXT/NARRATIVE: He woke up at 2 AM on December 22 (yesterday) with room spinning nausea and vomiting. He went back to sleep and when he woke up he felt better. However 5 AM he had recurrence of dizziness and that has persisted since that time (4 hours ago). He notes the room is spinning, he feels nausea, and he is unsteady when he walks. His vision is blurry. He has a mild headache on the top of his head. No ringing or hearing changes. He denies any numbness, weakness, double vision. He did have a similar episode of dizziness about a year ago Onset: Today head Pain Score (Numeric/FACES): 7 - Related Data Allergies Allergy/AdvReac Type Severity Reaction Status Date / Time No Known Allergies Allergy Verified 12/24/19 06:37 Home Meds: Home Meds Lisinopril 5 mg PO DAILY 01/06/18 [History] metFORMIN HCl [Metformin HCl] 1,000 mg PO BID 01/06/18 [History] diazePAM [Valium] 5 - 10 mg PO Q6H PRN #10 tab 12/24/19 [Rx] hydroCHLOROthiazide [Hydrochlorothiazide] 12.5 mg PO DAILY 12/24/19 [History] predniSONE [Prednisone] 5 mg PO ASDIRECTED #81 tablet 12/24/19 [Rx] Past Medical History HEENT History: Reports: None Cardiovascular History: Reports: Hypertension Respiratory History: Reports: None Gastrointestinal History: Reports: None Genitourinary History: Reports: None Musculoskeletal History: Reports: None Neurological History: Reports: None Psychiatric History: Reports: None Endocrine/Metabolic History: Reports: Diabetes, Type II Insulin Pump Model and Senior Online Marketing Manager: None Hematologic History: Reports: None Immunologic History: Reports: None Oncologic (Cancer) History: Reports: None Dermatologic History: Reports: None - Infectious Disease History Infectious Disease History: Reports: None Social & Family History - Family History Family Medical History: Noncontributory - Tobacco Use Smoking Status *Q: Never Smoker - Caffeine Use Caffeine Use: Reports: None - Recreational Drug Use Recreational Drug Use: No ED ROS GENERAL - Review of Systems Review Of Systems: Comprehensive ROS is negative, except as noted in HPI. ED EXAM, NEURO - Physical Exam Exam: See Below Comments: Constitutional: No acute distress Psychiatric: Mood/Affect: normal/appropriate Neurological: Mental Status: General: Normal activity, good hygiene, appropriate appearance. Level of consciousness: Awake, alert. Orientation: Oriented to person, place, time and situation. Concentration/Attention Span: Normal. Comprehension/Praxis: Able to perform a three step command. Fund of Knowledge/memory: Adequate recent and remote recall. Language: Fluent and articulate without evidence of aphasia or dysarthria. Thought Content: Normal. Insight/Judgement: Normal. Cranial Nerves: Pupils equally round and reactive to light. Visual lyon full to confrontation. Gaze conjugate, EOM full. Right beating nystagmus with prima ry and all direction of gaze. VORs abnormal bilaterally. . Sensation intact and symmetric to light touch. Facial strength is full and symmetric. Palate elevates symmetrically. Normal shrug bilaterally. Tongue protrudes midline Motor: Power 5/5 throughout Sensation: Sensation is intact to cold and vibratory sense Deep tendon reflexes: Normoactive throughout. Coordination: Finger to nose, heel to choudhary and rapid alternating movements are intact. Gait: Slightly wide based gait. Course - Vital Signs Last Recorded V/S: Last Vital Signs Temp 36.4 C 12/24/19 06:38 Pulse 89 12/24/19 06:38 Resp 18 12/24/19 06:38 BP 153/93 H 12/24/19 06:38 Pulse Ox 98 12/24/19 06:38 - Orders/Labs/Meds Labs: Laboratory Tests 12/24/19 12/24/19 12/24/19 Range/Units 06:39 06:39 09:30 WBC 6.29 (4.0-11.0) K/uL RBC 5.47 (4.50-5.90) M/uL Hgb 15.4 (13.0-17.0) g/dL Hct 44.3 (38.0-50.0) % MCV 81.0 (80.0-98.0) fL MCH 28.2 (27.0-32.0) pg MCHC 34.8 (31.0-37.0) g/dL RDW Std Deviation 38.2 (28.0-62.0) fl RDW Coeff of Chao 13 (11.0-15.0) % Plt Count 203 (150-400) K/uL MPV 10.90 (7.40-12.00) fL Neut % (Auto) 58.4 (48.0-80.0) % Lymph % (Auto) 32.8 (16.0-40.0) % [place] % (Auto) 6.5 (0.0-15.0) % Eos % (Auto) 2.1 (0.0-7.0) % Baso % (Auto) 0.2 (0.0-1.5) % Neut # (Auto) 3.7 (1.4-5.7) K/uL Lymph # (Auto) 2.1 (0.6-2.4) K/uL [place] # (Auto) 0.4 (0.0-0.8) K/uL Eos # (Auto) 0.1 (0.0-0.7) K/uL Baso # (Auto) 0.0 (0.0-0.1) K/uL Sodium 136 (136-148) mmol/L Potassium 3.3 L (3.5-5.1) mmol/L Chloride 100 (98-107) mmol/L Carbon Dioxide 29.0 (21.0-32.0) mmol/L BUN 10 (7.0-18.0) mg/dL Creatinine 1.0 (0.8-1.3) mg/dL Est Cr Clr Drug Dosing 77.09 mL/min Estimated GFR (MDRD) > 60.0 ml/min Glucose 207 H (74-106) mg/dL Calcium 8.3 L (8.5-10.1) mg/dL Magnesium 1.6 L (1.8-2.4) mg/dL Total Bilirubin 0.5 (0.2-1.0) mg/dL AST 16 (15-37) IU/L ALT 27 (14-63) IU/L Alkaline Phosphatase 61 (46-116) U/L Troponin I < 0.050 (0.000-0.056) ng/mL Total Protein 7.8 (6.4-8.2) g/dL Albumin 4.1 (3.4-5.0) g/dL Globulin 3.7 (2.6-4.0) g/dL Albumin/Globulin Ratio 1.1 (0.9-1.6) TSH 3rd Generation 0.64 (0.36-3.74) uIU/mL COVID-19 ([place]) NEGATIVE (NEGATIVE) Meds: Medications Discontinued Medications Generic Name Dose Route Start Last Admin Trade Name Freq PRN Reason Stop Dose Admin Acetaminophen 1,000 mg 12/24/19 06:43 12/24/19 06:48 Tylenol Extra Strength PO 12/24/19 06:44 1,000 mg ONETIME ONE Administration Aspirin 325 mg 12/24/19 07:55 12/24/19 09:35 Aspirin PO 12/24/19 07:56 325 mg ONETIME ONE Administration Gadobenate Dimeglumine 20 ml 12/24/19 08:15 12/24/19 09:19 Multihance IVPUSH 12/24/19 08:16 15 ml ONETIME STA Administration Sodium Chloride 500 mls @ 999 mls/hr 12/24/19 06:42 12/24/19 06:48 Normal Saline IV 12/24/19 07:12 999 mls/hr .BOLUS ONE Administration Meclizine HCl 25 mg 12/24/19 06:43 12/24/19 06:49 Antivert PO 12/24/19 06:44 25 mg ONETIME ONE Administration Metoclopramide HCl 5 mg 12/24/19 06:43 12/24/19 06:49 Reglan IVPUSH 12/24/19 06:44 5 mg ONETIME ONE Administration Departure - Departure Time of Disposition: 10:20 Disposition: Home, Self-Care 01 Condition: Good Clinical Impression: Vestibular neuronitis Qualifiers: Laterality: right Qualified Code(s): H81.21 - Vestibular neuronitis, right ear - Discharge Information *PRESCRIPTION DRUG MONITORING PROGRAM REVIEWED*: Yes *COPY OF PRESCRIPTION DRUG MONITORING REPORT IN PATIENT HARMAN: Not Applicable Prescriptions: predniSONE [Prednisone] 5 mg PO ASDIRECTED #81 tablet diazePAM [Valium] 5 - 10 mg PO Q6H PRN #10 tab PRN Reason: Dizziness Instructions: Labyrinthitis, [id number] Referrals: Effie Stone MD [Physician] - 1 Week (For follow-up of dizziness.) Forms: ED Department Discharge Additional Instructions: You were seen in the emergency department for dizziness. You were diagnosed with vestibular neuronitis, a condition where the nurse around the ear that affect your balance are inflamed and not working normally. We prescribed some steroids and diazepam. Take these as directed. Follow-up with a neurologist Dr. Stone in 1 to 2 weeks for reevaluation. Please return the emergency department immediately if your symptoms worsen or if you feel worse. Thank you for choosing the [facility] emergency department in [place] for your medical needs today. It was a pleasure caring for you. The following information is given to patients seen in the emergency department who are being discharged. This information is to outline your options for follow-up care. We provide all patients seen in our emergency department with a follow-up referral. The need for follow-up, as well as the timing and circumstances, are variable depending upon the specifics of your emergency department visit. If you don't have a primary care physician on staff, we will provide you with a referral. We always advise you to contact your personal physician following an emergency department visit to inform them of the circumstance of the visit and for follow-up with them and/or the need for any referrals to a consulting specialist. The emergency department will also refer you to a specialist when appropriate. This referral assures that you have the opportunity for follow-up care with a specialist. All of these measure are taken in an effort to provide you with optimal care, which includes your follow-up. Under all circumstances we always encourage you to contact your private physician who remains a resource for coordinating your care. When calling for follow-up care, please make the office aware that this follow-up is from your recent emergency room visit. If for any reason you are refused follow-up, please contact the [facility] Emergency Department at and asked to speak to the emergency department charge nurse. If you do not have a primary care physician that is caring for you, you can contact these clinics below to set up an appointment to establish care: [facility] - Primary Care [address] [place] [id number] [facility] [address] [place] [address] Sepsis Event Note (ED) - Evaluation Sepsis Screening Result: No Definite Risk - Focused Exam Vital Signs: Vital Signs Temp Pulse Resp BP Pulse Ox 12/24/19 06:38 36.4 C 89 18 153/93 H 98 - Problem List Review Problem List Initiated/Reviewed/Updated: Yes - Assessment/Plan Assessment:: MRI brain was normal. MRA head and neck showed diminutive left vert/dominant right vert, otherwise unremarkable Impression: Vertigo/nystagmus: Examination is most consistent with peripheral etiology and MRI brain was negative. Likely vestibular neuritis. Rec: f/u neurology in 1 week Prednisone 60 mg X 5 days then taper 40,30,20,10,5 mg. Risk of hyperglycemia discussed. Valium prn Plan d/w Dr. Whitman
== END 2019-12-24 11:13 | disposition home or self-care (01) ==
LOC: MW.ED 06:25
DX: H81.21 Vestibular neuronitis, right ear (principal); I10 Essential (primary) hypertension; E11.9 Type 2 diabetes mellitus without complications; Z79.84 Long term (current) use of oral hypoglycemic drugs; Z79.899 Other long term (current) drug therapy; Z20.828 Contact with and (suspected) exposure to other viral communicable diseases
CPT/HCPCS: 36415; 70450; 70486; 70544; 70549; 70551; 80053; 83735; 84443; 84484; 85025; 87635; 96361; 96374; 99284; A9270; A9577; J2765; J7030; 99283; U0002

== ENCOUNTER 2020-06-10 07:28 | Emergency (ER) | payer BC ==
[2020-06-10] MEDS ORDERED: Albuterol/Ipratropium 3.0-0.5 MG/3 ML Neb Soln NEB ONE (07:53)
--- NOTE | 2020-06-10 07:55 | EDM.PDOC ---
ED HPI GENERAL MEDICAL PROBLEM - General Chief Complaint: ENT Problem Stated Complaint: SORE THROAT;COUGH;NASAL DRIP;HEADACHE Time Seen by Provider: 06/10/20 07:35 Source of Information: Reports: Patient History Limitations: Reports: No Limitations - History of Present Illness INITIAL COMMENTS - FREE TEXT/NARRATIVE: 54-year-old male past medical history hypertension and vertigo presents for sore throat, nonproductive cough, wheezing, headache, runny nose x2 days. He notes that his has similar symptoms. He has had subjective fevers at home but no recorded fevers. He denies difficulty breathing or chest pain. - Related Data Allergies Allergy/AdvReac Type Severity Reaction Status Date / Time No Known Allergies Allergy Verified 06/10/20 07:42 Home Meds: Home Meds Lisinopril 5 mg PO DAILY 01/06/18 [History] metFORMIN HCl [Metformin HCl] 1,000 mg PO BID 01/06/18 [History] hydroCHLOROthiazide [Hydrochlorothiazide] 12.5 mg PO DAILY 12/24/19 [History] Albuterol Sulfate [Albuterol Sulfate Hfa] 18 gm IH Q4H PRN #1 hfa.aer.ad 06/10/20 [Rx] glipiZIDE [Glucotrol XL] mg PO DAILY 06/10/20 [History] predniSONE [Prednisone] 40 mg PO DAILY #10 tablet 06/10/20 [Rx] Past Medical History - Past Health History Medical/Surgical History: Denies Medical/Surgical History HEENT History: Reports: None Cardiovascular History: Reports: Hypertension Respiratory History: Reports: None Gastrointestinal History: Reports: None Genitourinary History: Reports: None Musculoskeletal History: Reports: None Neurological History: Reports: None Psychiatric History: Reports: None Endocrine/Metabolic History: Reports: Diabetes, Type II Insulin Pump Model and Racing Mechanic: None Hematologic History: Reports: None Immunologic History: Reports: None Oncologic (Cancer) History: Reports: None Dermatologic History: Reports: None - Infectious Disease History Infectious Disease History: Reports: None Social & Family History - Family History Family Medical History: No Pertinent Family History - Tobacco Use Tobacco Use Status *Q: Never Tobacco User - Caffeine Use Caffeine Use: Reports: Energy Drinks - Recreational Drug Use Recreational Drug Use: No ED ROS GENERAL - Review of Systems Review Of Systems: Comprehensive ROS is negative, except as noted in HPI. ED EXAM, GENERAL - Physical Exam Exam: See Below Exam Limited By: No Limitations General Appearance: Alert, WD/WN, No Apparent Distress Nose: Normal Inspection Throat/Mouth: Normal Inspection, Normal Lips, Normal Teeth, Normal Gums, Normal Oropharynx, Normal Voice, No Airway Compromise Head: Atraumatic, Normocephalic Neck: Normal Inspection Respiratory/Chest: No Respiratory Distress, No Accessory Muscle Use, Wheezing Cardiovascular: Normal Peripheral Pulses, Regular Rate, Rhythm Extremities: Normal Inspection Neurological: Alert Psychiatric: Normal Affect, Normal Mood Skin Exam: Warm, Dry, Intact, Normal Color Course - Vital Signs Last Recorded V/S: Last Vital Signs Temp 96.8 F L 06/10/20 07:45 Pulse 89 06/10/20 08:18 Resp 18 06/10/20 08:18 BP 148/95 H 06/10/20 08:18 Pulse Ox 98 06/10/20 08:18 - Orders/Labs/Meds Orders: Active Orders 24 hr Category Date Time Status RT Aerosol Therapy [RC] ASDIRECTED Care 06/10/20 07:53 Active Labs: Laboratory Tests 06/10/20 Range/Units 07:55 Influenza Type A RNA NEGATIVE (NEGATIVE) Influenza Type B RNA NEGATIVE (NEGATIVE) SARS-CoV-2 RNA ([place]) NEGATIVE (NEGATIVE) Meds: Medications Discontinued Medications Generic Name Dose Route Start Last Admin Trade Name Valdezq PRN Reason Stop Dose Admin Albuterol/Ipratropium 3 ml 06/10/20 07:53 Duoneb 3.0-0.5 Mg/3 Ml NEB 06/10/20 07:54 ONETIME ONE - Re-Assessments/Exams Free Text/Narrative Re-Assessment/Exam: 06/10/20 07:55 Patient presents with URI-like symptoms and mild bilateral expiratory wheezing. Will get Covid and influenza swabs. Will get chest x-ray. Will give DuoNeb for symptomatic treatment. We will follow up results and disposition accordingly. 06/10/20 08:43 Patient's Covid and influenza testing are negative. His chest x-ray is unremarkable. Will treat for bronchitis with prednisone and albuterol inhaler. Return precautions discussed. Departure - Departure Time of Disposition: 08:44 Disposition: Home, Self-Care 01 Condition: Good Clinical Impression: Bronchitis - Discharge Information Prescriptions: Albuterol Sulfate [Albuterol Sulfate Hfa] 18 gm IH Q4H PRN #1 hfa.aer.ad PRN Reason: Wheezing predniSONE [Prednisone] 40 mg PO DAILY #10 tablet Instructions: Acute Bronchitis, Adult, [id number] Referrals: Matt Paris MD [Primary Care Provider] - Forms: ED Department Discharge Additional Instructions: Your Covid and influenza testing were negative. Your chest x-ray does not reveal evidence of pneumonia or other bacterial infection. Your symptoms are consistent with bronchitis which is usually a viral inflammatory disorder. You have been prescribed a medication called prednisone which will help to open up your lungs. You have also been prescribed an albuterol inhaler which you can use to help open up your lungs and your wheezing. If you have any difficulty breathing, fevers, or any new or concerning symptom development you are encouraged to return to the emergency department for reassessment. Please keep in mind that Covid tests are not 100% accurate and it is possible that you have an early COVID-19 infection. The following information is given to patients seen in the emergency department who are being discharged to home. This information is to outline your options for follow-up care. We provide all patients seen in our emergency department with a follow-up referral. The need for follow-up, as well as the timing and circumstances, are variable depending upon the specifics of your emergency department visit. If you don't have a primary care physician on staff, we will provide you with a referral. We always advise you to contact your personal physician following an emergency department visit to inform them of the circumstance of the visit and for follow-up with them and/or the need for any referrals to a consulting specialist. The emergency department will also refer you to a specialist when appropriate. This referral assures that you have the opportunity for follow-up care with a specialist. All of these measure are taken in an effort to provide you with optimal care, which includes your follow-up. Under all circumstances we always encourage you to contact your private physician who remains a resource for coordinating your care. When calling for follow-up care, please make the office aware that this follow-up is from your recent emergency room visit. If for any reason you are refused follow-up, please contact the [facility] Emergency Department at and asked to speak to the emergency department charge nurse. Please follow up with your primary care physician. If you do not have a primary care physician, see below: [facility] [address], [place] [id number] My [facility] [address] [place] [address] [facility] [address] [place] [address] Sepsis Event Note (ED) - Evaluation Sepsis Screening Result: No Definite Risk - Focused Exam Vital Signs: Vital Signs Temp Pulse Resp BP Pulse Ox 06/10/20 08:18 89 18 148/95 H 98 06/10/20 07:45 96.8 F L 90 17 150/102 H 99 - My Orders Last 24 Hours: My Active Orders 06/10/20 07:53 RT Aerosol Therapy [RC] ASDIRECTED - Assessment/Plan Last 24 Hours: My Active Orders 06/10/20 07:53 RT Aerosol Therapy [RC] ASDIRECTED
--- NOTE | 2020-06-10 08:18 | CR ---
HISTORY: Wheezing, shortness of breath. TECHNIQUE: One view of the chest. COMPARISON: 01/06/2018. FINDINGS: Cardiac size is exaggerated by the AP portable technique and likely upper limits of normal. There is no pulmonary vascular congestion. No focal lung infiltrate or pulmonary edema. No pneumothorax or pleural effusion. IMPRESSION: No lung infiltrate. Dictated by Flo Lira MD @ Jun 10 2020 8:15AM Signed by Dr. Flo Lira @ Jun 10 2020 8:17AM
[2020-06-10 08:25] VITALS: BP 148/95; PULSE 89
[2020-06-10 08:43] LABS: CORONAVIRUS COVID-19 NAA NEGATIVE (NEGATIVE); INFLUENZA A NAA NEGATIVE (NEGATIVE); INFLUENZA B NAA NEGATIVE (NEGATIVE)
== END 2020-06-10 09:02 | disposition home or self-care (01) ==
LOC: MW.ED 07:28
DX: J40 Bronchitis, not specified as acute or chronic (principal); I10 Essential (primary) hypertension; E11.9 Type 2 diabetes mellitus without complications; Z20.822 Contact with and (suspected) exposure to COVID-19; Z79.899 Other long term (current) drug therapy
CPT/HCPCS: 0240U; 71045; 94640; 99285; 99283; J7620-GY

== ENCOUNTER 2021-01-19 19:40 | Emergency (ER) | payer BC, OTHER ==
[2021-01-19 21:20] VITALS: PULSE 93
[2021-01-19] MEDS ORDERED: diphenhydrAMINE 50 MG/ML SDV IVPUSH ONE (21:28)
[2021-01-19] MEDS ORDERED: methylPREDNISolone Sodium Succinate 125 MG/2 ML SDV IVPUSH ONE (21:29)
--- NOTE | 2021-01-19 22:03 | EDM.PDOC ---
ED HPI GENERAL MEDICAL PROBLEM - General Chief Complaint: Allergic Reaction Stated Complaint: SWOLLEN LIP Time Seen by Provider: 01/19/21 21:17 - History of Present Illness INITIAL COMMENTS - FREE TEXT/NARRATIVE: HISTORY AND PHYSICAL: History of present illness: This is a 55-year-old gentleman with a history of hypertension who presents ER today secondary to swelling to his lower lip on the right side that started earlier this afternoon. Patient reports that this morning he ate some fish and then went to sleep. He reports when he woke up he noticed swelling to his lower lip. Patient denies any other symptomatology. Patient has any recent fevers, shakes, chills, nausea, vomiting, diarrhea, dysuria, frequency, urgency, chest pain, shortness of breath, wheezing, stridor. Patient reports that he has been on lisinopril for quite some time and did take it today after he ate the fish and went to sleep. Patient reports he has never had a chronic cough in the past. Review of systems: As per history of present illness and below otherwise all systems reviewed and negative. Past medical history: As per history of present illness and as reviewed below otherwise noncontributory. Surgical history: As per history of present illness and as reviewed below otherwise noncontributory. Social history: No reported history of drug abuse. Family history: As per history of present illness and as reviewed below otherwise noncontributory. Physical exam: This patient was seen and evaluated during the 2019 SARS-CoV-2 novel coronavirus pandemic period. Community viral transmission is ongoing at time of this encoun ter and the emergency department is operating under pandemic response procedures. Constitutional: Patient is oriented to person, place, and time. Appears well- developed and well-nourished. No distress. HEENT: Moist mucous membranes Head: Normocephalic and atraumatic Eyes: Right eye exhibits no discharge. Left eye exhibits no discharge. No scleral icterus Neck: Normal range of motion. No tracheal deviation present. Cardiovascular: Normal rate and regular rhythm. Pulmonary: Effort normal, no respiratory distress. Abdominal: No distention Musculoskeletal: Normal range of motion Neurologic: Alert and oriented to person, place and time. Skin: [place], warm and dry. Psychiatric: Normal mood and affect. Behavior is normal. Judgment and thought content normal. Nursing note and vital signs have been reviewed Patient's ER physical exam is significant for swelling to his right lower lip. Patient has no tongue edema. Patient has no angioedema. Patient has no stridor. Patient has no wheezing rales or rhonchi. Patient has no rash noted throughout his body. Therapeutics: Benadryl, Solu-Medrol Assessment and plan: This is a 55-year-old gentleman who presents ER today with signs symptoms most consistent with angioedema. Etiology is unclear however the most likely culprit I be concerned about is an WAYNE inhibitor. Patient is currently taking lisinopril and HCTZ for his hypertension. I will discuss with the patient stopping his lisinopril as I believe that this is the culprit and will have him follow-up with his doctor to reassess other potential medications for his hypertension. Patient has been given Solu-Medrol and Benadryl here in the ED. Patient be discharged with a prescription for prednisone and Benadryl to take home for the next 5 days. Definitive disposition and diagnosis as appropriate pending reevaluation and review of above. - Related Data Allergies Allergy/AdvReac Type Severity Reaction Status Date / Time No Known Allergies Allergy Verified 06/10/20 07:42 Home Meds: Home Meds Lisinopril 5 mg PO DAILY 01/06/18 [History] metFORMIN HCl [Metformin HCl] 1,000 mg PO BID 01/06/18 [History] hydroCHLOROthiazide [Hydrochlorothiazide] 12.5 mg PO DAILY 12/24/19 [History] Albuterol Sulfate [Albuterol Sulfate Hfa] 18 gm IH Q4H PRN #1 [id number].[id number] 06/10/20 [Rx] glipiZIDE [Glucotrol XL] mg PO DAILY 06/10/20 [History] predniSONE [Prednisone] 40 mg PO DAILY #10 tablet 06/10/20 [Rx] diphenhydrAMINE [Benadryl] 50 mg PO Q6HR PRN #20 cap 01/19/21 [Rx] predniSONE [Prednisone] 50 mg PO DAILY #5 tablet 01/19/21 [Rx] Past Medical History - Past Health History Medical/Surgical History: Denies Medical/Surgical History HEENT History: Reports: None Cardiovascular History: Reports: Hypertension Respiratory History: Reports: None Gastrointestinal History: Reports: None Genitourinary History: Reports: None Musculoskeletal History: Reports: None Neurological History: Reports: None Psychiatric History: Reports: None Endocrine/Metabolic History: Reports: Diabetes, Type II Insulin Pump Model and Appointment Specialist: None Hematologic History: Reports: None Immunologic History: Reports: None Oncologic (Cancer) History: Reports: None Dermatologic History: Reports: None - Infectious Disease History Infectious Disease History: Reports: None Social & Family History - Family History Family Medical History: No Pertinent Family History - Tobacco Use Tobacco Use Status *Q: Never Tobacco User - Caffeine Use Caffeine Use: Reports: None - Recreational Drug Use Recreational Drug Use: No ED ROS ALLERGIC REACTION - Review of Systems Review Of Systems: See Below ED EXAM GENERAL NO PERIP PULSE - Physical Exam Exam: See Below Course - Vital Signs Last Recorded V/S: Last Vital Signs Temp 97 F 01/19/21 21:18 Pulse 93 01/19/21 21:18 Resp 16 01/19/21 21:18 BP 116/77 01/19/21 21:18 Pulse Ox 99 01/19/21 21:18 - Orders/Labs/Meds Meds: Medications Discontinued Medications Generic Name Dose Route Start Last Admin Trade Name Sammi PRRosalio Reason Stop Dose Admin Diphenhydramine HCl 50 mg 01/19/21 21:28 01/19/21 21:42 Diphenhydramine 50 Mg/Ml Sdv IVPUSH 01/19/21 21:29 50 mg ONETIME ONE Administration Methylprednisolone Sodium Succinate 125 mg 01/19/21 21:29 01/19/21 21:42 Methylprednisolone Sodium Succinate 125 Mg/2 Ml Sdv IVPUSH 01/19/21 21:30 125 mg ONETIME ONE Administration Departure - Departure Time of Disposition: 22:30 Disposition: Home, Self-Care 01 Condition: Good Clinical Impression: Angioedema, WAYNE inhibitor-aggravated angioedema - Discharge Information Instructions: Angioedema, [id number] Referrals: Matt Paris MD [Primary Care Provider] - Forms: ED Department Discharge Additional Instructions: Your seen and evaluated in the ER today secondary to swelling to your lip. This is called angioedema. The most likely cause to your angioedema is your lisinopril. This is a medication that he could be on for several years without any problems and then 1 day you can wake up and have a reaction to. I recommend that he stop your WAYNE inhibitor/lisinopril and talk to your doctor this week so they can decide if they want to put you on a different blood pressure medication. You were given a prescription for Benadryl and prednisone to take as directed. The following information is given to patients seen in the emergency department who are being discharged to home. This information is to outline your options for follow-up care. We provide all patients seen in our emergency department with a follow-up referral. The need for follow-up, as well as the timing and circumstances, are variable depending upon the specifics of your emergency department visit. If you don't have a primary care physician on staff, we will provide you with a referral. We always advise you to contact your personal physician following an emergency department visit to inform them of the circumstance of the visit and for follow-up with them and/or the need for any referrals to a consulting specialist. The emergency department will also refer you to a specialist when appropriate. This referral assures that you have the opportunity for follow-up care with a specialist. All of these measure are taken in an effort to provide you with optimal care, which includes your follow-up. Under all circumstances we always encourage you to contact your private physician who remains a resource for coordinating your care. When calling for follow-up care, please make the office aware that this follow-up is from your recent emergency room visit. If for any reason you are refused follow-up, please contact the [facility] Emergency Department at and asked to speak to the emergency department charge nurse. [facility] [address] [place] [address] [place] [address] Sepsis Event Note (ED) - Focused Exam Vital Signs: Vital Signs Temp Pulse Resp BP Pulse Ox 01/19/21 21:18 97 F 93 16 116/77 99 01/19/21 20:27 97.3 F 105 H 20 140/95 H 98
[2021-01-19 22:37] VITALS: BP 120/85
== END 2021-01-19 22:42 | disposition home or self-care (01) ==
LOC: MW.ED 19:40
DX: T78.3XXA Angioneurotic edema, initial encounter (principal); I10 Essential (primary) hypertension; E11.9 Type 2 diabetes mellitus without complications; Z79.84 Long term (current) use of oral hypoglycemic drugs; Z79.899 Other long term (current) drug therapy
CPT/HCPCS: 96374; 96375; 99283; J1200; J2930

== ENCOUNTER 2021-04-09 16:37 | Emergency (ER) | payer BC, OTHER ==
--- NOTE | 2021-04-09 16:40 | EDM.PDOC ---
ED HPI GENERAL MEDICAL PROBLEM - General Chief Complaint: Back Pain or Injury Stated Complaint: LOWER BACK PAIN SINCE LAST TUESDAY Time Seen by Provider: 04/09/21 16:39 Source of Information: Reports: Patient History Limitations: Reports: No Limitations - History of Present Illness INITIAL COMMENTS - FREE TEXT/NARRATIVE: HISTORY AND PHYSICAL: History of present illness: Patient is a 55-year-old male who presents to the emergency room with complaints of low back pain. He noticed the pain on Tuesday, not related to any injury trauma or fall. States the pain is worse when he is immobile or having to engage his core or bend at the waist. Pain does not radiate. Patient denies any fever, chills, headache, change in vision, syncope or near syncope. Denies any chest pain, back pain, shortness of breath or cough. Denies any GI or symptoms. No recent travel or sick contacts. Review of systems: As per history of present illness and below otherwise all systems reviewed and negative. Past medical history: As per history of present illness and as reviewed below otherwise noncontributory. Surgical history: As per history of present illness and as reviewed below otherwise noncontributory. Social history: See social history for further information Family history: As per history of present illness and as reviewed below otherwise noncontributory. Physical exam: General: Well developed and well nourished 55-year-old black male. Alert and orientated x 3. Nontoxic in appearance and in no acute distress. Vital signs are stable and have been reviewed by me. Nursing notes were reviewed. HEENT: Atraumatic, normocephalic, pupils equal and reactive bilaterally, negative for conjunctival pallor or scleral icterus, mucous membranes moist, TMs normal bilaterally, throat clear, neck supple, nontender, trachea midline. No drooling or trismus noted. No meningeal signs. No hot potato voice noted. Lungs: Clear to auscultation bilaterally. No wheezes, rales, or rhonchi. Chest nontender. Normal work of breathing, no accessory muscles used. Heart: S1S2, regular rate and rhythm without overt murmur, gallops, or rubs. No JVD. No peripheral edema Abdomen: Soft, nondistended, nontender. Normoactive bowel sounds. Negative for masses or costovertebral tenderness. C-spine/Back: No pinpoint vertebral tenderness upon palpation. No crepitus, step-offs or obvious deformities. Patient is ambulatory into the emergency room without difficulty or deficit. Able to rock back on heels and walk on toes. Denies any urinary or fecal incontinence. Denies any numbness, tingling or saddle paresthesia. No concerns of serious infection, fracture or cord compression, or cauda equina syndrome. Deep tendon reflexes brisk bilaterally. Skin: Intact, warm, dry. No lesions or rashes noted. Hematologic: No petechiae or purpra. Mucosa appropriate color and normal nail bed color and refill. Extremities: Atraumatic, moves all extremities per self without difficulty or deficits, negative for cords or calf pain. Neurovascular unremarkable. Neuro: Awake, alert, oriented. Cranial nerves II through XII unremarkable. Cerebellum unremarkable. Motor and sensory unremarkable throughout. Exam nonfocal. Psychiatric: Mood and affect are appropriate. Normal thought process. Answering questions appropriately. Please note that the patient was seen and evaluated during the 2019 SARS-CoV-2 n ovel coronavirus pandemic period. Community viral transmission is ongoing at time of this encounter and the emergency department is operating under pandemic response procedures. Medical Decision Making: Patient is a 55-year-old male who presents to the emergency room with complaints of low back pain. Pain has been ongoing for approximately 5 to 6 days and is worse with immobilization or having to engage his core/back with movement. He denies any injury, trauma or falls. He has no bony tenderness. Denies any urinary or fecal incontinence. Denies any numbness, tingling, saddle paresthesia or weakness. I do not feel any imaging is warranted at this time. We will do a short course of anti-inflammatory and muscle relaxer. I have talked with the patient about today's findings, in addition to providing specific details for plan of care. Reassessment at the time of disposition demonstrates that the patient is in no acute distress. The patient is stable for discharge, counseling was provided and we discussed in great detail signs and symptoms that would prompt them to return to the Emergency Department. Medication, follow up and supportive care measures were reviewed and discussed. Voices understanding and is agreeable to plan of care. Denies any further questions or concerns at this time. Diagnostics: None Therapeutics: Norflex, Toradol Prescription: Flexeril Impression: Lumbago Plan: 1. The medication you received today does cause drowsiness, so do not drive for the remaining day 2. When resting please lay on a flat firm surface. Limit your immobility to prevent muscle stiffness. Get up to ambulate/move around/gentle stretching multiple times throughout the day. May alternate heat and ice to the painful areas 3. Tylenol and Ibuprofen as needed for back pain. Otherwise take the prescribed Flexeril as directed. Flexeril as a muscle relaxant, this medication may cause drowsiness a do not take it will driving her needing to be functioning outside of the house. 4. Please follow-up with your primary care provider as we discussed. Return to the ED as needed and as discussed. Definitive disposition and diagnosis as appropriate pending reevaluation and review of above. back pain Pain Score (Numeric/FACES): 10 - Related Data Allergies Allergy/AdvReac Type Severity Reaction Status Date / Time No Known Allergies Allergy Verified 04/09/21 16:47 Home Meds: Home Meds metFORMIN HCl [Metformin HCl] 1,000 mg PO BID 01/06/18 [History] hydroCHLOROthiazide [Hydrochlorothiazide] 12.5 mg PO DAILY 12/24/19 [History] glipiZIDE [Glucotrol XL] mg PO DAILY 06/10/20 [History] Past Medical History - Past Health History Medical/Surgical History: Denies Medical/Surgical History HEENT History: Reports: None Cardiovascular History: Reports: Hypertension Respiratory History: Reports: None Gastrointestinal History: Reports: None Genitourinary History: Reports: None Musculoskeletal History: Reports: None Neurological History: Reports: None Psychiatric History: Reports: None Endocrine/Metabolic History: Reports: Diabetes, Type II Insulin Pump Model and Corrections Nurse: None Hematologic History: Reports: None Immunologic History: Reports: None Oncologic (Cancer) History: Reports: None Dermatologic History: Reports: None - Infectious Disease History Infectious Disease History: Reports: None Social & Family History - Family History Family Medical History: No Pertinent Family History - Caffeine Use Caffeine Use: Reports: None ED ROS GENERAL - Review of Systems Review Of Systems: Comprehensive ROS is negative, except as noted in HPI. ED EXAM,LOWER BACK PAIN/INJURY - Physical Exam Exam: See Below (See dictation) Course - Vital Signs Last Recorded V/S: Last Vital Signs Temp 97.7 F 04/09/21 16:50 Pulse 108 H 04/09/21 16:50 Resp 18 04/09/21 16:50 BP 147/89 H 04/09/21 16:50 Pulse Ox 97 04/09/21 16:50 - Orders/Labs/Meds Meds: Medications Discontinued Medications Generic Name Dose Route Start Last Admin Trade Name Sammi PRN Reason Stop Dose Admin Ketorolac Tromethamine 60 mg 04/09/21 17:00 Ketorolac 60 Mg/2 Ml Sdv IM 04/09/21 17:01 ONETIME ONE Orphenadrine Citrate 60 mg 04/09/21 17:00 Orphenadrine 60 Mg/2 Ml Inj IM 04/09/21 17:01 ONETIME ONE Departure - Departure Time of Disposition: 17:06 Disposition: Home, Self-Care 01 Clinical Impression: Lumbago Qualifiers: Chronicity: acute Back pain laterality: bilateral Sciatica presence: without sciatica Qualified Code(s): M54.50 - Low back pain, unspecified - Discharge Information Instructions: Muscle Strain, [id number] Forms: ED Department Discharge Additional Instructions: The following information is given to patients seen in the emergency department who are being discharged to home. This information is to outline your options for follow-up care. We provide all patients seen in our emergency department with a follow-up referral. The need for follow-up, as well as the timing and circumstances, are variable d epending upon the specifics of your emergency department visit. If you don't have a primary care physician on staff, we will provide you with a referral. We always advise you to contact your personal physician following an emergency department visit to inform them of the circumstance of the visit and for follow-up with them and/or the need for any referrals to a consulting specialist. The emergency department will also refer you to a specialist when appropriate. This referral assures that you have the opportunity for follow-up care with a specialist. All of these measure are taken in an effort to provide you with optimal care, which includes your follow-up. Under all circumstances we always encourage you to contact your private physician who remains a resource for coordinating your care. When calling for follow-up care, please make the office aware that this follow-up is from your recent emergency room visit. If for any reason you are refused follow-up, please contact the [facility] Emergency Department at and asked to speak to the emergency department charge nurse. [facility] [address] [place] [address] [facility] [address] [place] [address] Thank you for choosing the [facility] emergency department in [place] for your medical needs today. It was a pleasure caring for you. Today you were seen in the emergency department for back pain 1. The medication you received today does cause drowsiness, so do not drive for the remaining day 2. When resting please lay on a flat firm surface. Limit your immobility to prevent muscle stiffness. Get up to ambulate/move around/gentle stretching multiple times throughout the day. May alternate heat and ice to the painful areas 3. Tylenol and Ibuprofen as needed for back pain. Otherwise take the prescribed Flexeril as directed. Flexeril as a muscle relaxant, this medication may cause drowsiness a do not take it will driving her needing to be functioning outside o f the house. 4. Please follow-up with your primary care provider as we discussed. Return to the ED as needed and as discussed.: Sepsis Event Note (ED) - Focused Exam Vital Signs: Vital Signs Temp Pulse Resp BP Pulse Ox 04/09/21 16:50 97.7 F 108 H 18 147/89 H 97
[2021-04-09] MEDS ORDERED: Orphenadrine 60 MG/2 ML Inj IM ONE (17:00)
[2021-04-09] MEDS ORDERED: Ketorolac 60 MG/2 ML SDV IM ONE (17:00)
[2021-04-09 17:19] VITALS: BP 138/93; PULSE 98
== END 2021-04-09 17:19 | disposition home or self-care (01) ==
LOC: MW.ED 16:37
DX: M54.50 Low back pain, unspecified (principal); I10 Essential (primary) hypertension; E11.9 Type 2 diabetes mellitus without complications; Z79.84 Long term (current) use of oral hypoglycemic drugs; Z79.899 Other long term (current) drug therapy
CPT/HCPCS: 96372; 99283; J1885; J2360

== ENCOUNTER 2021-10-17 16:49 | Emergency (ER) | payer OTHER ==
[2021-10-17 17:12] VITALS: BP 123/82
[2021-10-17 18:17] VITALS: PULSE 110
== END 2021-10-17 17:31 | disposition home or self-care (01) ==
LOC: MW.ED 16:49
DX: Z00.00 Encounter for general adult medical examination without abnormal findings (principal); I10 Essential (primary) hypertension; E11.9 Type 2 diabetes mellitus without complications; Z76.0 Encounter for issue of repeat prescription; Z79.84 Long term (current) use of oral hypoglycemic drugs
CPT/HCPCS: 82947; 99283

== ENCOUNTER 2022-10-15 19:12 | Emergency (ER) | payer OTHER ==
[2022-10-15] MEDS ORDERED: Amoxicillin/Clavulanate K 875-125 MG Tab PO ONE (19:36)
[2022-10-15 20:31] VITALS: BP 155/85; PULSE 92
== END 2022-10-15 20:29 | disposition home or self-care (01) ==
LOC: MW.ED 19:12
DX: J32.9 Chronic sinusitis, unspecified (principal); I10 Essential (primary) hypertension; E11.9 Type 2 diabetes mellitus without complications; Z79.899 Other long term (current) drug therapy; Z79.84 Long term (current) use of oral hypoglycemic drugs; Z20.822 Contact with and (suspected) exposure to COVID-19
CPT/HCPCS: 87635; 87651; 99284; A9270; 99283; U0002

== ENCOUNTER 2023-12-07 17:56 | Emergency (ER) | payer OTHER ==
[2023-12-07 19:32] LABS: CORONAVIRUS COVID-19 NAA NEGATIVE (NEGATIVE); INFLUENZA A NAA NEGATIVE (NEGATIVE); INFLUENZA B NAA NEGATIVE (NEGATIVE); RESPIRATORY SYNCYTIAL VIR NAA NEGATIVE (NEGATIVE)
[2023-12-07] MEDS: Albuterol/Ipratropium 3.0-0.5 MG/3 ML Neb Soln NEB STA (19:33)
[2023-12-07] MEDS: Albuterol 0.083% 2.5 MG/3 ML Neb Soln NEB STA (19:33)
[2023-12-07 20:11] VITALS: BP 111/75; PULSE 92
== END 2023-12-07 20:10 | disposition home or self-care (01) ==
LOC: MW.ED 17:56
DX: J40 Bronchitis, not specified as acute or chronic (principal); Z75.8 Other problems related to medical facilities and other health care; I10 Essential (primary) hypertension; E78.00 Pure hypercholesterolemia, unspecified; E11.9 Type 2 diabetes mellitus without complications; Z79.899 Other long term (current) drug therapy; Z79.84 Long term (current) use of oral hypoglycemic drugs
CPT/HCPCS: 0241U; 71046; 99284; J7620-GY

== ENCOUNTER 2024-09-28 21:03 | Emergency (ER) | payer SELFPAY ==
[2024-09-28] MEDS: chlordiazePOXIDE 25 MG Cap PO ONE (21:34)
[2024-09-28 21:44] LABS: BASOPHILS ABSOLUTE AUTO 0.02 K/uL (0.00-0.20); BASOPHILS PERCENT AUTO 0.4 % (0.0-1.0); EOSINOPHILS ABSOLUTE AUTO 0.02 K/uL (0.00-0.45); EOSINOPHILS PERCENT AUTO 0.4 % (0.0-6.0); HEMATOCRIT 45.2 % (42.0-52.0); HEMOGLOBIN 15.8 g/dL (14.0-18.0); LYMPHOCYTES ABSOLUTE AUTO 1.72 K/uL (1.00-4.80); LYMPHOCYTES PERCENT AUTO 38.1 % (24.0-44.0); MEAN CORPUSCULAR HEMOGLOBIN 30.2 pg (28.0-32.0); MEAN CORPUSCULAR VOLUME 86.3 fL (83.0-99.0); MEAN PLATELET VOLUME 10.5 fL (9.4-12.4); MONOCYTES ABSOLUTE AUTO 0.45 K/uL (0.00-0.80); NEUTROPHILS PERCENT AUTO 51.1 % (41.0-71.0); PLATELET COUNT,PLT 160 K/uL (150-400); RED BLOOD CELL COUNT 5.24 M/uL (4.52-5.90); WHITE BLOOD CELL COUNT,WBC 4.51 K/uL (3.9-11.3)
[2024-09-28 22:09] LABS: A/G RATIO 1.1 (0.9-1.6); ALANINE AMINOTRANSFERASE,ALT 41 IU/L (14-63); ALBUMIN 3.6 g/dL (3.4-5.0); ALKALINE PHOSPHATASE 78 U/L (46-116); ASPARTATE AMNIOTRANSFERASE,AST 20 IU/L (15-37); BILIRUBIN TOTAL 0.7 mg/dL (0.2-1.0); BLOOD UREA NITROGEN,BUN 16 mg/dL (7.0-18.0); CARBON DIOXIDE,CO2 33.4 mmol/L (21.0-32.0); CHLORIDE,CL 99 mmol/L (98-107); CREATININE 1.2 mg/dL (0.8-1.3); EST CRCL DRUG DOSING (CG) 64.92 mL/min; ETHANOL BLOOD MEDICAL <3 mg/dL; GLUCOSE RANDOM 181 mg/dL (74-106); MAGNESIUM 1.9 mg/dL (1.8-2.4); PROTEIN TOTAL,TP 6.8 g/dL (6.4-8.2); SODIUM,NA 136 mmol/L (136-148)
[2024-09-28 22:10] LABS: ESTIMATED GFR 70 mL/min (>60)
[2024-09-29 01:15] VITALS: BP 150/97; PULSE 91
== END 2024-09-29 01:15 | disposition home or self-care (01) ==
LOC: MW.ED 21:03
DX: R00.2 Palpitations (principal); F10.930 Alcohol use, unspecified with withdrawal, uncomplicated; I10 Essential (primary) hypertension; E78.00 Pure hypercholesterolemia, unspecified; E11.9 Type 2 diabetes mellitus without complications; Z79.899 Other long term (current) drug therapy; Z79.84 Long term (current) use of oral hypoglycemic drugs; Z91.048 Other nonmedicinal substance allergy status
CPT/HCPCS: 36415; 71046; 80053; 80307; 83735; 84484; 85025; 93005; 99285; A9270; 99283

== ENCOUNTER 2024-12-02 23:45 | Emergency (ER) | payer SELFPAY ==
[2024-12-02] MEDS ORDERED: Sodium Chloride 0.9% 10 ML Syringe FLUSH PRN (23:49)
[2024-12-02] MEDS ORDERED: Sodium Chloride 0.9% 2.5 ML Syringe FLUSH PRN (23:49)
[2024-12-02 23:52] VITALS: PULSE 89
[2024-12-03 00:24] LABS: BASOPHILS ABSOLUTE AUTO 0.02 K/uL (0.00-0.20); BASOPHILS PERCENT AUTO 0.4 % (0.0-1.0); EOSINOPHILS ABSOLUTE AUTO 0.04 K/uL (0.00-0.45); EOSINOPHILS PERCENT AUTO 0.8 % (0.0-6.0); IMMATURE GRAN ABSOLUTE AUTO 0.01 K/uL (0.00-0.05); IMMATURE GRAN PERCENT AUTO 0.2 % (0.0-0.4); LYMPHOCYTES ABSOLUTE AUTO 1.78 K/uL (1.00-4.80); LYMPHOCYTES PERCENT AUTO 36.4 % (24.0-44.0); MEAN PLATELET VOLUME 10.5 fL (9.4-12.4); MONOCYTES ABSOLUTE AUTO 0.32 K/uL (0.00-0.80); MONOCYTES PERCENT AUTO 6.5 % (0.0-8.0); NEUTROPHILS ABSOLUTE AUTO 2.72 K/uL (1.80-7.70); NEUTROPHILS PERCENT AUTO 55.7 % (41.0-71.0); NRBC ABSOLUTE 0.00 K/uL (0.00-0.02); NRBC PERCENT 0.0 /100WBC (0.0-0.2); PLATELET COUNT,PLT 183 K/uL (150-400); RED BLOOD CELL COUNT 5.10 M/uL (4.52-5.90); WHITE BLOOD CELL COUNT,WBC 4.89 K/uL (3.9-11.3)
[2024-12-03 00:31] LABS: BLOOD UREA NITROGEN,BUN 20 mg/dL (7.0-18.0); CARBON DIOXIDE,CO2 29.5 mmol/L (21.0-32.0); CHLORIDE,CL 99 mmol/L (98-107); CREATININE 1.2 mg/dL (0.8-1.3); GLUCOSE RANDOM 333 mg/dL (74-106); POTASSIUM,K 3.8 mmol/L (3.5-5.1); PRO B-TYPE NATRIUR PEPT,BNPPRO 42 pg/mL (0-125); SODIUM,NA 136 mmol/L (136-148)
[2024-12-03 00:34] LABS: ESTIMATED GFR 70 mL/min (>60)
[2024-12-03 00:55] VITALS: BP 150/98
== END 2024-12-03 00:55 | disposition home or self-care (01) ==
LOC: MW.ED 23:45
DX: R00.2 Palpitations (principal); I10 Essential (primary) hypertension; E78.00 Pure hypercholesterolemia, unspecified; E11.9 Type 2 diabetes mellitus without complications; Z91.048 Other nonmedicinal substance allergy status; Z79.84 Long term (current) use of oral hypoglycemic drugs
CPT/HCPCS: 36415; 71045; 71045-26; 80048; 83735; 83880; 84484; 85025; 93005; 93010; 99283; 99285